=== PATIENT | male | born 1990 | race Hispanic/Latino ===

== ENCOUNTER 2017-02-05 10:35 | Inpatient (IN) | payer OTHER ==
[2017-02-05 10:38] VITALS: BMI 25.8
[2017-02-05 11:28] LABS: BASO # 0.1 K/uL (0.0-0.2); BASO % 0.9 % (0.0-2.0); EOS % 0.8 % (0.0-4.0); HEMATOCRIT 50.4 % (35.0-51.0); LYMPH # 2.2 K/uL (1.0-4.3); LYMPH % 34.7 % (20.0-40.0); MEAN CELL VOLUME 87.1 fl (80.0-94.0); MEAN CORPUSCULAR HEMOGLOBIN 30.6 pg (27.0-31.0); MEAN CORPUSCULAR HGB CONC 35.2 g/dL (33.0-37.0); MEAN PLATELET VOLUME 9.1 fl (7.2-11.7); MONO # 0.5 K/uL (0.0-0.8); MONO % 8.2 % (0.0-10.0); NEUT # 3.6 K/uL (1.8-7.0); NEUT % 55.4 % (50.0-75.0); NRBC % 1.9 % (0.0-0.0); WHITE BLOOD COUNT 6.4 K/uL (4.8-10.8)
--- NOTE | 2017-02-05 11:28 | RAD ---
HISTORY: chest pain/ r/o infiltrate COMPARISON: No prior. TECHNIQUE: Chest PA and lateral FINDINGS: LUNGS: The lungs are clear. PLEURA: There is a moderate right hydro pneumothorax. No evidence of significant mediastinal shift. No left pneumothorax or pleural effusion. CARDIOVASCULAR: Normal. OSSEOUS STRUCTURES: No significant abnormalities. VISUALIZED UPPER ABDOMEN: Normal. OTHER FINDINGS: None. IMPRESSION: Moderate right hydro pneumothorax. Critical findings were discussed with CHIN Conway on 02/05/2017 at 11:25 a.m.
[2017-02-05 12:26] LABS: ALB/GLOB RATIO 1.4 (1.0-2.1); ALKALINE PHOSPHATASE 55 U/L (38-126); ALT/SGPT 38 U/L (21-72); AST/SGOT 32 U/L (17-59); BILIRUBIN,TOTAL 1.2 mg/dl (0.2-1.3); BLOOD UREA NITROGEN 14 mg/dl (9-20); CALCIUM 9.9 mg/dL (8.4-10.2); CARBON DIOXIDE 24 mmol/L (22-30); CHLORIDE 104 mmol/L (98-107); GFR AFRICAN-AMERICAN > 60; GLUCOSE,RANDOM 80 mg/dL (75-110); POTASSIUM 4.2 MMOL/L (3.6-5.0); SODIUM 140 mmol/l (132-148); TOTAL PROTEIN 7.8 G/DL (6.3-8.2)
--- NOTE | 2017-02-05 12:41 | CT ---
PROCEDURE: CT Chest without contrast HISTORY: Pneumothorax possible hydropneumothorax COMPARISON: None. TECHNIQUE: Contiguous axial images were obtained through the chest without intravenous contrast enhancement. Sagittal and coronal reconstructions were performed. Radiation dose (DLP): 482.46 mGy-cm. This CT exam was performed using one or more of the following dose reduction techniques: Automated exposure control, adjustment of the mA and/or kV according to patient size, and/or use of iterative reconstruction technique. FINDINGS: LUNGS: There is confluent airspace disease in the posterior basal segment of the right lower lobe. There is also subsegmental atelectasis in the right lower lobe. There is no mass or pulmonary nodule. There is mild left apical pleural parenchymal scarring. There is no evidence of subpleural blebs. There are no endobronchial lesions. MEDIASTINUM: The aorta is normal in caliber. The heart is normal in size. No pericardial effusion. No pathologic lymphadenopathy. PLEURA: There is a moderate right hydro pneumothorax. No evidence of shift of mediastinal to the left. No left pleural effusion or pneumothorax. BONES: No fracture. No destructive lesion. UPPER ABDOMEN: Grossly unremarkable. OTHER FINDINGS: None. IMPRESSION: 1. Moderate right hydropneumothorax, the etiology of which remains uncertain. No evidence of mediastinal shift. No evidence of subpleural blebs. 2. Confluent airspace disease in the posterior basal segment of the right lower lobe could represent atelectasis however superimposed pneumonia cannot be excluded. Follow-up after medical management is recommended to ensure complete resolution. Critical findings were discussed with Dr. Michele Jeffrey on 02/05/2017.
--- NOTE | 2017-02-05 12:48 | ED PDOC ---
HPI: Chest Pain Time Seen by Provider: 02/05/17 10:55 Chief Complaint (Nursing): Chest Pain Chief Complaint (Provider): chest pain History Per: Patient History/Exam Limitations: no limitations Onset/Duration Of Symptoms: Days (x 2-3) Additional Complaint(s): Vlad Levy is a 26 year old male, with no previous medical history, who was sent to the ED by urgent care after a chest x-ray revealed a pneumothorax of the right lung. Patient reports experiencing right sided chest discomfort for the past 2-3 days after carrying a heavy bag. He reports pain worsened today while ambulating. He denies any current shortness of breath. PMD: none provided Past Medical History Reviewed: Historical Data, Nursing Documentation, Vital Signs Vital Signs: Last Vital Signs Temp 97.6 F 02/05/17 16:15 Pulse 78 02/05/17 16:15 Resp 19 02/05/17 16:15 BP 128/78 02/05/17 15:45 Pulse Ox 98 02/05/17 15:45 - Medical History PMH: No Chronic Diseases - Surgical History Other surgeries: nasal surgery - Family History Family History: States: Unknown Family Hx - Social History Current smoker - smoking cessation education provided: No Alcohol: Social Drugs: Denies - Home Medications Home Medications: Ambulatory Orders Medication Instructions Recorded No Known Home Med 02/05/17 - Allergies Allergies/Adverse Reactions: Allergies Allergy/AdvReac Type Severity Reaction Status Date / Time Penicillins Allergy RASH Verified 02/05/17 10:51 Review of Systems ROS Statement: Except As Marked, All Systems Reviewed And Found Negative Cardiovascular: Positive for: Chest Pain Respiratory: Negative for: Shortness of Breath Physical Exam - Reviewed Nursing Documentation Reviewed: Yes Vital Signs Reviewed: Yes - Physical Exam Appears: Positive for: Well, Non-toxic, No Acute Distress Head Exam: Positive for: ATRAUMATIC, NORMAL INSPECTION, NORMOCEPHALIC Skin: Positive for: Normal Color, Warm, Dry Eye Exam: Positive for: EOMI, Normal appearance, PERRL ENT: Positive for: Normal ENT Inspection Neck: Positive for: Normal, Painless ROM, Supple Cardiovascular/Chest: Positive for: Regular Rate, Rhythm Respiratory: Positive for: Decreased Breath Sounds (at the right lung ). Negative for: Other (subcutaneous emphysema ) Gastrointestinal/Abdominal: Positive for: Normal Exam, Bowel Sounds, Soft Back: Positive for: Normal Inspection Extremity: Positive for: Normal ROM Neurologic/Psych: Positive for: Alert, Oriented - Laboratory Results Result Diagrams: 02/05/17 11:23 02/05/17 11:23 - ECG Interpretation Of ECG: early re-polarization Rate: 62 (bpm) O2 Sat by Pulse Oximetry: 99 (RA) Pulse Ox Interpretation: Normal - Critical Care Total Time (In Min): 35 Medical Decision Making Medical Decision Making: Initial Impression: Pneumothorax Initial Plan: * CT chest w/o contrast * EKG * labs * Troponin I * NPO diet * PTT * PT * CXR * reevaluation 12:40 Chest x-ray showers a moderate right pneumothorax with fluid inferiorly prompting CT chest. Consulted with thoracic surgeon, Dr. De Anda who will be placing a chest tube and admitting to Telemetry. Procedure note- Procedural consent, see note below. Dr De Anda and surgical team did entire thoracostomy procedure. I provided procedural sedation only. Consent obtained for deep sedation after risks benefits and alternatives explained. NPO >8hrs per patient ETCO2 used and monitored throughout. Propofol used for sedation, tolerated well, premedicated w dilaudid 1mg for pain. MD in room for 35minutes Scribe Attestation: Documented by Dione Gaytan, acting as a scribe for Michele Jeffrey D.O. Provider Scribe Attestation: All medical record entries made by the Scribe were at my direction and personally dictated by me. I have reviewed the chart and agree that the record accurately reflects my personal performance of the history, physical exam, medical decision making, and the department course for this patient. I have also personally directed, reviewed, and agree with the discharge instructions and disposition. Disposition - Clinical Impression Clinical Impression: Hydropneumothorax - Patient ED Disposition Is Patient to be Admitted: Yes Counseled Patient/Family Regarding: Studies Performed, Diagnosis, Need For Followup - Disposition Disposition Time: 12:45 Condition: FAIR - Pt Status Changed To: Hospital Disposition Of: Inpatient - Admit Certification Admit to Inpatient:: After my assessment, the patient will require hospitalization for at least two midnights. This is because of the severity of symptoms shown, intensity of services needed, and/or the medical risk in this patient being treated as an outpatient. - POA Present On Arrival: None Procedure: Blank - Time Time Performed: 13:40 ( ) - Time Out Time Out: Side verified, Site verified, Patient ID confirmed, Sterile procedures obs. - Procedure Procedure:: Conscious Sedation - Consent obtained: Consent obtained: Written - Performed by: Performed by:: Attending physician - Anesthetic Technique Anesthetic Technique: Intravenous pain meds - Procedural Sedation Procedural Sedation: Propofol - Systemic Analgesia Systemic Analgesia:: Dilaudid - Result Result: Successful - Patient Tolerated Procedure Patient Tolerated Procedure:: Well
[2017-02-05] MEDS ORDERED: Propofol 10 mg/ml Inj (20 ML) IV ONE (13:32)
[2017-02-05] MEDS ORDERED: Propofol 10 mg/ml 1,000 MG/100 ML VIAL ONE (13:40)
[2017-02-05] MEDS ORDERED: Lidocaine 1% Inj (20ml) ONE (14:18)
[2017-02-05] MEDS ORDERED: Oxycodone/Acetaminophen 5/325 mg Tab PO PRN (15:12)
--- NOTE | 2017-02-05 15:15 | RAD ---
HISTORY: Follow-up pneumothorax. COMPARISON: Comparison made with prior study dated 02/05/2017 FINDINGS: LUNGS: Interval placement right-sided chest tube with decrease right pneumothorax however there may be a very tiny residual righ apical pneumothorax. Suspect minimal right basilar atelectasis. PLEURA: As above. CARDIOVASCULAR: Normal. OSSEOUS STRUCTURES: No significant abnormalities. VISUALIZED UPPER ABDOMEN: Normal. OTHER FINDINGS: None. IMPRESSION: Interval placement right-sided chest tube with what appears represent tiny residual right apical pneumothorax
--- NOTE | 2017-02-05 15:53 | CP.PCM.HP ---
History of Present Illness - History of Present Illness History of Present Illness: H & P for Dr. De Anda Vlad Levy is a 26 year old male, with no previous medical history, who was sent to the ED by urgent care after a chest x-ray revealed a pneumothorax of the right lung. Patient reports experiencing right sided chest discomfort for the past 2-3 days after carrying a heavy bag. He reports pain worsened today while ambulating. Denies shortness of breath/F/C/N/V/D/trauma. CXR and CT revealed R side hydro pneumothorax. CT was placed in the ED. Post chest tube CXR shows resolution of R pneumothorax. Present on Admission - Present on Admission Any Indicators Present on Admission: No Review of Systems - Review of Systems Review of Systems: See HPI Past Patient History - Past Social History Smoking Status: Never Smoked - CARDIAC Hx Cardiac Disorders: No - PULMONARY Hx Respiratory Disorders: No - NEUROLOGICAL Hx Neurological Disorder: No - HEENT Hx HEENT Problems: No - RENAL Hx Chronic Kidney Disease: No - ENDOCRINE/METABOLIC Hx Endocrine Disorders: No - HEMATOLOGICAL/ONCOLOGICAL Hx Blood Disorders: No - INTEGUMENTARY Hx Dermatological Problems: No - MUSCULOSKELETAL/RHEUMATOLOGICAL Hx Musculoskeletal Disorders: No - GENITOURINARY/GYNECOLOGICAL Hx Genitourinary Disorders: No - PSYCHIATRIC Hx Psychophysiologic Disorder: No - SURGICAL HISTORY Hx Surgeries: No Meds Allergies/Adverse Reactions: Allergies Allergy/AdvReac Type Severity Reaction Status Date / Time Penicillins Allergy RASH Verified 02/05/17 10:51 Physical Exam - Constitutional Appears: No Acute Distress - Head Exam Head Exam: ATRAUMATIC, NORMAL INSPECTION, NORMOCEPHALIC - Eye Exam Eye Exam: EOMI, Normal appearance, PERRL Pupil Exam: NORMAL ACCOMODATION, PERRL - ENT Exam ENT Exam: Mucous Membranes Moist, Normal Exam - Neck Exam Neck exam: Positive for: Normal Inspection - Respiratory Exam Respiratory Exam: Clear to Auscultation Bilateral, NORMAL BREATHING PATTERN Additional comments: R chest tube in place - Cardiovascular Exam Cardiovascular Exam: REGULAR RHYTHM - GI/Abdominal Exam GI & Abdominal Exam: Normal Bowel Sounds, Soft. absent: Distended, Tenderness - Extremities Exam Extremities exam: Positive for: normal inspection - Back Exam Back exam: NORMAL INSPECTION - Neurological Exam Neurological exam: Alert, CN II-XII Intact, Normal Gait, Oriented x3, Reflexes Normal - Psychiatric Exam Psychiatric exam: Normal Affect, Normal Mood - Skin Skin Exam: Dry, Intact, Normal Color, Warm Results - Vital Signs Recent Vital Signs: Last Vital Signs Temp 97.5 F L 02/05/17 14:59 Pulse 78 02/05/17 15:45 Resp 19 02/05/17 15:45 BP 128/78 02/05/17 15:45 Pulse Ox 98 02/05/17 15:45 - Labs Result Diagrams: 02/05/17 11:23 02/05/17 11:23 Assessment & Plan - Assessment and Plan (Free Text) Assessment: R spontaneous pneumothorax s/p chest tube insertion POD 0 -Daily CXR -Pain control -Ambulate, Incentive spirometer - CT on low cont suction DW Dr. De Anda
--- NOTE | 2017-02-05 15:59 | PCM.PROC ---
Procedures Attestation:: I certify that I have explained the specified Operation(s) or Procedure(s), risks, benefits and reasonable alternatives to the Patient and/or other person responsible. The opportunity was given to ask questions and all questions answered - Chest Tube Chest Tube Location: Anterior Chest Right Size of Tube (cm): 28 Chest Tube Procedure: Chlorhexidine Tube Sutured to Skin: Yes Sterile Dressing Applied: Yes Anesthesia: Lidocaine 1% Volume Anesthetic (mls): 20 Incision Made With: #10 blade Post Procedure: sutured to skin, sterile dressing applied Tube Drainage: other Amount of Initial Drainage: 5 (SS) Post Procedure CXR?: Yes Patient Tolerated Procedure: Yes
--- NOTE | 2017-02-05 16:21 | CP.PCM.CON ---
History of Present Illness - History of Present Illness History of Present Illness: Reason for consutaton: Spontaneous Right pneumothorax. Requested by Dr. Jeffrey. Pt s/e. 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 He came from Urgent care center where CXR showed 40% pneumothorax. Tube thoracostomy in the ER under IV sedation and local. 27f chest tube inserted via 5ics in ant axillary line. He tolerated procedure well, and post- procedure cxr-No or ? apical pneumo. No air leak. Min. serosanguinous effusion drained. Admit to telemetry unit, daily cxr, and pain control. ct of chest Wednesday to evaluate etiology of pneumo. Past Patient History - Past Social History Smoking Status: Never Smoked - CARDIAC Hx Cardiac Disorders: No - PULMONARY Hx Respiratory Disorders: No - NEUROLOGICAL Hx Neurological Disorder: No - HEENT Hx HEENT Problems: No - RENAL Hx Chronic Kidney Disease: No - ENDOCRINE/METABOLIC Hx Endocrine Disorders: No - HEMATOLOGICAL/ONCOLOGICAL Hx Blood Disorders: No - INTEGUMENTARY Hx Dermatological Problems: No - MUSCULOSKELETAL/RHEUMATOLOGICAL Hx Musculoskeletal Disorders: No - GENITOURINARY/GYNECOLOGICAL Hx Genitourinary Disorders: No - PSYCHIATRIC Hx Psychophysiologic Disorder: No - SURGICAL HISTORY Hx Surgeries: No Meds Allergies/Adverse Reactions: Allergies Allergy/AdvReac Type Severity Reaction Status Date / Time Penicillins Allergy RASH Verified 02/05/17 10:51 - Medications Medications: Current Medications Acetaminophen (Tylenol 325mg Tab) 650 mg PO Q4 PRN PRN Reason: Fever >100.4 F Oxycodone/Acetaminophen (Percocet 5/325 Mg Tab) 2 tab PO Q4 PRN PRN Reason: Pain, severe (8-10) Stop: 02/08/17 15:13 Results - Vital Signs Recent Vital Signs: Last Vital Signs Temp 97.6 F 02/05/17 16:15 Pulse 78 02/05/17 16:15 Resp 19 02/05/17 16:15 BP 128/78 02/05/17 15:45 Pulse Ox 98 02/05/17 15:45 - Labs Result Diagrams: 02/05/17 11:23 02/05/17 11:23
--- NOTE | 2017-02-06 07:51 | CP.PCM.PN ---
Subjective - Date & Time of Evaluation Date of Evaluation: 02/06/17 Time of Evaluation: 06:15 - Subjective Subjective: CT surgery progress note for Dr. Emmanuel Farrar, PGY-1 Pt S & E at bedside. Pt reports one episode of nausea with bilious emesis last night at ~11pm, improved w/anti-emetic. Pt reports eating dinner at 3am. Pain with inspiration and at the chest tube insertion site. Denies current N/V/F/C, SOB, CP, ab pain. Objective - Vital Signs/Intake and Output Vital Signs (last 24 hours): Temp Pulse Resp BP Pulse Ox 98.4 F 76 18 122/67 97 02/06/17 05:00 02/06/17 05:00 02/06/17 05:00 02/06/17 05:00 02/06/17 05:00 Intake and Output: 02/06/17 02/06/17 06:59 18:59 Intake Total 600 Output Total 1265 Balance -665 - Medications Medications: Current Medications Acetaminophen (Tylenol 325mg Tab) 650 mg PO Q4 PRN PRN Reason: Fever >100.4 F Heparin Sodium (Porcine) (Heparin) 5,000 units SC Q12 YUSRA PRN Reason: Protocol Ondansetron HCl (Zofran Odt) 4 mg PO Q8H PRN PRN Reason: Nausea/Vomiting Last Admin: 02/05/17 21:49 Dose: 4 mg Oxycodone/Acetaminophen (Percocet 5/325 Mg Tab) 2 tab PO Q4 PRN PRN Reason: Pain, severe (8-10) Stop: 02/08/17 15:13 - Labs Labs: PT 12.2 Seconds (9.8-13.1) 02/05/17 11:23 INR 1.1 (0.9-1.2) 02/05/17 11:23 APTT 31.0 Seconds (25.6-37.1) 02/05/17 11:23 - Constitutional Appears: Non-toxic, No Acute Distress - Head Exam Head Exam: ATRAUMATIC, NORMAL INSPECTION, NORMOCEPHALIC - Eye Exam Eye Exam: EOMI, Normal appearance - ENT Exam ENT Exam: Mucous Membranes Moist, Normal Exam - Neck Exam Neck Exam: Full ROM, Normal Inspection - Respiratory Exam Respiratory Exam: Chest Wall Tenderness (at right sided chest tube insertion site), Clear to Ausculation Bilateral. absent: Accessory Muscle Use, Rales, Rhonchi, Wheezes, Respiratory Distress, NORMAL BREATHING PATTERN (shallow breathing) - Cardiovascular Exam Cardiovascular Exam: REGULAR RHYTHM, +S1, +S2 - Extremities Exam Extremities Exam: Normal Inspection - Neurological Exam Neurological Exam: Alert, Awake, CN II-XII Intact, Oriented x3 - Psychiatric Exam Psychiatric exam: Normal Affect, Normal Mood - Skin Skin Exam: Dry, Normal Color, Warm Assessment and Plan - Assessment and Plan (Free Text) Assessment: 26M w/R pneumothorax s/p chest tube placment, POD#1 Plan: FU AM CXR OOBTC encourage IS use Started Heparin Cont pain mgmt/zofran Leave chest tube on suction Further recs as per attending Will REED attending Leni, PGY-1
--- NOTE | 2017-02-06 10:13 | RAD ---
HISTORY: R chest tube for pneumothorax COMPARISON: Chest x-ray performed 02/05/17 TECHNIQUE: Chest, one view. FINDINGS: LUNGS: No focal consolidation. Please note that chest x-ray has limited sensitivity for the detection of pulmonary masses. PLEURA: No significant pleural effusion identified. Right-sided chest tube. Tiny right-sided pneumothorax. CARDIOVASCULAR: The cardiomediastinal silhouette appears within normal limits of size. OSSEOUS STRUCTURES: No acute osseous abnormality identified. VISUALIZED UPPER ABDOMEN: Unremarkable. OTHER FINDINGS: Subcutaneous emphysema, right lateral chest wall. IMPRESSION: Right-sided chest tube. Tiny residual right-sided pneumothorax. Small subcutaneous emphysema, right lateral chest wall.
--- NOTE | 2017-02-06 13:50 | CARD ---
APPROVED REPORT EKG Measurement Heart [id number] <Conclusion> Sinus rhythm with marked sinus arrhythmia ST elevation, consider early repolarization, pericarditis, or injury Abnormal ECG
--- NOTE | 2017-02-07 10:51 | CP.PCM.PN ---
Subjective - Date & Time of Evaluation Date of Evaluation: 02/07/17 Time of Evaluation: 10:48 - Subjective Subjective: Surgery: Dr. De Anda Pt seen and examined. Resting comfortably in bed. No SOB. No Cough. Has complaints of mild back pain. Objective - Vital Signs/Intake and Output Vital Signs (last 24 hours): Temp Pulse Resp BP Pulse Ox 98.5 F 64 18 152/77 H 97 02/07/17 08:00 02/07/17 08:00 02/07/17 08:00 02/07/17 08:00 02/07/17 08:00 Intake and Output: 02/07/17 02/07/17 06:59 18:59 Output Total 415 Balance -415 - Medications Medications: Current Medications Acetaminophen (Tylenol 325mg Tab) 650 mg PO Q4 PRN PRN Reason: Fever >100.4 F Acetaminophen (Tylenol 325mg Tab) 650 mg PO Q4 PRN PRN Reason: Pain, moderate (4-7) Last Admin: 02/07/17 06:02 Dose: 650 mg Heparin Sodium (Porcine) (Heparin) 5,000 units SC Q12 YUSRA PRN Reason: Protocol Last Admin: 02/07/17 08:56 Dose: 5,000 units Ondansetron HCl (Zofran Odt) 4 mg PO Q8H PRN PRN Reason: Nausea/Vomiting Last Admin: 02/05/17 21:49 Dose: 4 mg Oxycodone/Acetaminophen (Percocet 5/325 Mg Tab) 2 tab PO Q4 PRN PRN Reason: Pain, severe (8-10) Stop: 02/08/17 15:13 - Labs Labs: PT 12.2 Seconds (9.8-13.1) 02/05/17 11:23 INR 1.1 (0.9-1.2) 02/05/17 11:23 APTT 31.0 Seconds (25.6-37.1) 02/05/17 11:23 - Constitutional Appears: Non-toxic, No Acute Distress - Head Exam Head Exam: ATRAUMATIC, NORMOCEPHALIC - Eye Exam Eye Exam: EOMI - ENT Exam ENT Exam: Mucous Membranes Moist - Respiratory Exam Respiratory Exam: NORMAL BREATHING PATTERN. absent: Accessory Muscle Use, Respiratory Distress Additional comments: R side CT in place, dressing C/D/I - GI/Abdominal Exam GI & Abdominal Exam: Soft. absent: Tenderness - Neurological Exam Neurological Exam: Alert, Awake, Oriented x3 Assessment and Plan - Assessment and Plan (Free Text) Assessment: 26M w. R PTX s/p CT placement, POD#2 -CT: 30cc/24hr serosang, tidling, no airleaks -CXR stable -Keep CT to suction -repeat CT 02/08 -motrin for pain -will d/w attending Zemaitis PGY3
--- NOTE | 2017-02-07 11:57 | RAD ---
HISTORY: R chest tube for pneumothorax COMPARISON: Chest x-ray performed 02/06/17. TECHNIQUE: Chest, one view. FINDINGS: Right-sided chest tube. LUNGS: No focal consolidation. Please note that chest x-ray has limited sensitivity for the detection of pulmonary masses. PLEURA: No significant pleural effusion identified. Tiny residual pneumothorax . CARDIOVASCULAR: Heart size appears within normal limits. OSSEOUS STRUCTURES: No acute osseous abnormality identified. VISUALIZED UPPER ABDOMEN: Unremarkable. OTHER FINDINGS: Small subcutaneous emphysema, right lateral chest wall. IMPRESSION: Right-sided chest tube. Tiny residual pneumothorax. Small subcutaneous emphysema, right lateral chest wall.
--- NOTE | 2017-02-08 08:13 | CP.PCM.PN ---
Subjective - Date & Time of Evaluation Date of Evaluation: 02/08/17 Time of Evaluation: 08:11 - Subjective Subjective: CT Surgery for Dr. De Anda Pt s&e. ROMULO. Denies F/C/N/V/D/CP/SOB. Tolerating diet. amb. +void Objective - Vital Signs/Intake and Output Vital Signs (last 24 hours): Temp Pulse Resp BP Pulse Ox 97.6 F 62 18 136/79 98 02/08/17 05:27 02/08/17 05:27 02/08/17 05:27 02/08/17 05:27 02/08/17 05:27 Intake and Output: 02/08/17 02/08/17 06:59 18:59 Output Total 410 Balance -410 - Medications Medications: Current Medications Acetaminophen (Tylenol 325mg Tab) 650 mg PO Q4 PRN PRN Reason: Fever >100.4 F Acetaminophen (Tylenol 325mg Tab) 650 mg PO Q4 PRN PRN Reason: Pain, moderate (4-7) Last Admin: 02/07/17 06:02 Dose: 650 mg Heparin Sodium (Porcine) (Heparin) 5,000 units SC Q12 YUSRA PRN Reason: Protocol Last Admin: 02/07/17 20:40 Dose: 5,000 units Ibuprofen (Motrin Tab) 600 mg PO Q6 PRN PRN Reason: Pain, moderate (4-7) Last Admin: 02/07/17 23:04 Dose: 600 mg Ondansetron HCl (Zofran Odt) 4 mg PO Q8H PRN PRN Reason: Nausea/Vomiting Last Admin: 02/05/17 21:49 Dose: 4 mg Oxycodone/Acetaminophen (Percocet 5/325 Mg Tab) 2 tab PO Q4 PRN PRN Reason: Pain, severe (8-10) Stop: 02/08/17 15:13 - Labs Labs: PT 12.2 Seconds (9.8-13.1) 02/05/17 11:23 INR 1.1 (0.9-1.2) 02/05/17 11:23 APTT 31.0 Seconds (25.6-37.1) 02/05/17 11:23 - Constitutional Appears: No Acute Distress - Head Exam Head Exam: ATRAUMATIC, NORMAL INSPECTION, NORMOCEPHALIC - Eye Exam Eye Exam: EOMI, Normal appearance, PERRL Pupil Exam: NORMAL ACCOMODATION, PERRL - ENT Exam ENT Exam: Mucous Membranes Moist, Normal Exam - Neck Exam Neck Exam: Full ROM, Normal Inspection. absent: Lymphadenopathy - Respiratory Exam Respiratory Exam: Clear to Ausculation Bilateral, NORMAL BREATHING PATTERN Additional comments: R chest tube in place: No leak . 10 cc ss . - Cardiovascular Exam Cardiovascular Exam: REGULAR RHYTHM, +S1, +S2. absent: Murmur - GI/Abdominal Exam GI & Abdominal Exam: Soft, Normal Bowel Sounds. absent: Distended, Firm, Guarding, Rigid, Tenderness - Extremities Exam Extremities Exam: Full ROM, Normal Capillary Refill, Normal Inspection. absent : Joint Swelling, Pedal Edema - Back Exam Back Exam: NORMAL INSPECTION - Neurological Exam Neurological Exam: Alert, Awake, CN II-XII Intact, Normal Gait, Oriented x3 - Psychiatric Exam Psychiatric exam: Normal Affect, Normal Mood - Skin Skin Exam: Dry, Intact, Normal Color, Warm Assessment and Plan - Assessment and Plan (Free Text) Assessment: 26M w. R PTX s/p CT placement, POD#3 -F/U CT chest today -CT: 10cc/24hr serosang, tidling, no airleaks -Keep CT to suction -motrin for pain -will d/w attending
--- NOTE | 2017-02-08 11:02 | RAD ---
PROCEDURE: CHEST RADIOGRAPH, 1 VIEW HISTORY: R chest tube for pneumothorax COMPARISON: 02/07/2017 FINDINGS: LUNGS: Clear. PLEURA: No pleural effusion or pneumothorax. Right lateral chest tube extends near apex, unchanged. CARDIOVASCULAR: Normal. OSSEOUS STRUCTURES: No significant abnormalities. VISUALIZED UPPER ABDOMEN: Normal. OTHER FINDINGS: None. IMPRESSION: Right chest tube unchanged. No pneumothorax.
--- NOTE | 2017-02-08 12:45 | CT ---
PROCEDURE: CT Chest without contrast HISTORY: comparison, pneumothorax s/p chest tube COMPARISON: Prior chest CT dated 02/05/2017. TECHNIQUE: Contiguous axial images were obtained through the chest without intravenous contrast enhancement. Sagittal and coronal reconstructions were performed. Radiation dose (DLP): 539 mGy-cm. This CT exam was performed using one or more of the following dose reduction techniques: Automated exposure control, adjustment of the mA and/or kV according to patient size, and/or use of iterative reconstruction technique. FINDINGS: LUNGS: A right-sided chest is it is identified in situ at the right lateral right pleural space. Prior right pneumothorax has resolved. There is moderate bilateral basilar dependent atelectasis. Visualized airway clear. Trace biapical pulmonary fibrosis again evident. MEDIASTINUM: Unremarkable thoracic aorta. No aneurysm. Normal sized heart. Main pulmonary artery unremarkable. No vascular congestion. No lymphadenopathy. PLEURA: No pleural fluid. No pneumothorax. BONES: No fracture. No destructive lesion. UPPER ABDOMEN: Grossly unremarkable. OTHER FINDINGS: None. IMPRESSION: Resolution of prior right pneumothorax with right-sided chest tube in situ at the lateral right pleural space. Bibasilar dependent atelectasis is encountered.
--- NOTE | 2017-02-09 07:46 | CP.PCM.PN ---
Subjective - Date & Time of Evaluation Date of Evaluation: 02/09/17 Time of Evaluation: 07:44 - Subjective Subjective: CT Surgery for Dr. De Anda Pt s&e. ROMULO. Denies F/C/N/V/D/CP/SOB. +amb + void. CT has been on waterseal since yesterday AM. No pain. Tolerating diet. Objective - Vital Signs/Intake and Output Vital Signs (last 24 hours): Temp Pulse Resp BP Pulse Ox 97.6 F 70 18 139/66 99 02/09/17 05:38 02/09/17 05:38 02/09/17 05:38 02/09/17 05:38 02/09/17 05:38 Intake and Output: 02/09/17 02/09/17 06:59 18:59 Output Total 5 Balance -5 - Medications Medications: Current Medications Acetaminophen (Tylenol 325mg Tab) 650 mg PO Q4 PRN PRN Reason: Fever >100.4 F Acetaminophen (Tylenol 325mg Tab) 650 mg PO Q4 PRN PRN Reason: Pain, moderate (4-7) Last Admin: 02/07/17 06:02 Dose: 650 mg Heparin Sodium (Porcine) (Heparin) 5,000 units SC Q12 YUSRA PRN Reason: Protocol Last Admin: 02/08/17 21:43 Dose: 5,000 units Ibuprofen (Motrin Tab) 600 mg PO Q6 PRN PRN Reason: Pain, moderate (4-7) Last Admin: 02/08/17 21:48 Dose: 600 mg Ondansetron HCl (Zofran Odt) 4 mg PO Q8H PRN PRN Reason: Nausea/Vomiting Last Admin: 02/05/17 21:49 Dose: 4 mg - Labs Labs: PT 12.2 Seconds (9.8-13.1) 02/05/17 11:23 INR 1.1 (0.9-1.2) 02/05/17 11:23 APTT 31.0 Seconds (25.6-37.1) 02/05/17 11:23 - Constitutional Appears: In Acute Distress - Head Exam Head Exam: ATRAUMATIC, NORMAL INSPECTION, NORMOCEPHALIC - Eye Exam Eye Exam: EOMI, Normal appearance, PERRL Pupil Exam: NORMAL ACCOMODATION, PERRL - ENT Exam ENT Exam: Mucous Membranes Moist, Normal Exam - Neck Exam Neck Exam: Full ROM, Normal Inspection. absent: Lymphadenopathy - Respiratory Exam Respiratory Exam: Clear to Ausculation Bilateral, NORMAL BREATHING PATTERN Additional comments: CT no leak. - Cardiovascular Exam Cardiovascular Exam: REGULAR RHYTHM, +S1, +S2. absent: Murmur - GI/Abdominal Exam GI & Abdominal Exam: Soft, Normal Bowel Sounds. absent: Tenderness - Rectal Exam Rectal Exam: NORMAL INSPECTION - Extremities Exam Extremities Exam: Full ROM, Normal Capillary Refill, Normal Inspection. absent : Joint Swelling, Pedal Edema - Back Exam Back Exam: NORMAL INSPECTION - Neurological Exam Neurological Exam: Alert, Awake, CN II-XII Intact, Normal Gait, Oriented x3 - Psychiatric Exam Psychiatric exam: Normal Affect, Normal Mood - Skin Skin Exam: Dry, Intact, Normal Color, Warm Assessment and Plan - Assessment and Plan (Free Text) Assessment: 26M w. R PTX s/p CT placement, POD#4 -F/U AM CXR -Possible DC CXR -CT: no airleaks -Keep CT on waterseal -motrin for pain -will d/w attending
--- NOTE | 2017-02-09 12:12 | RAD ---
PROCEDURE: CHEST RADIOGRAPH, 1 VIEW HISTORY: R chest tube for pneumothorax COMPARISON: 02/08/2017 FINDINGS: LUNGS: Clear. PLEURA: Right apical chest tube unchanged. No pneumothorax. No pleural effusion. CARDIOVASCULAR: Normal. OSSEOUS STRUCTURES: No significant abnormalities. VISUALIZED UPPER ABDOMEN: Normal. OTHER FINDINGS: None. IMPRESSION: Right chest tube. No pneumothorax. Otherwise unremarkable.
--- NOTE | 2017-02-09 12:33 | RAD ---
HISTORY: post CT pull COMPARISON: 02/09/2017 at 9:24 a.m. FINDINGS: LUNGS: No pulmonary infiltrate. PLEURA: There is a moderate right pneumothorax. The right chest tube has been removed. There is no left pneumothorax. There is no pleural effusion. CARDIOVASCULAR: Normal. OSSEOUS STRUCTURES: No significant abnormalities. VISUALIZED UPPER ABDOMEN: Normal. OTHER FINDINGS: None. IMPRESSION: Status post removal of right chest tube. Moderate right pneumothorax noted. This finding was reviewed with Dr. De Anda at 12:30 p.m. on 02/09/2017.
--- NOTE | 2017-02-09 13:05 | CP.PCM.PN ---
Subjective - Date & Time of Evaluation Date of Evaluation: 02/09/17 Time of Evaluation: 12:57 - Subjective Subjective: Recurrent right pneumothorax after removal of chest tube-documented on cxr. Will reinsert the tube in OR under sedation and local+ talc pleurodesis using Fluroscopic guidance Risks, benefits, and alternatives discussed and surgical procedure discussed with the pt who accepted surgery without reservation. Objective - Vital Signs/Intake and Output Vital Signs (last 24 hours): Temp Pulse Resp BP Pulse Ox 97.7 F 82 20 137/80 97 02/09/17 12:33 02/09/17 12:33 02/09/17 12:33 02/09/17 12:33 02/09/17 12:33 Intake and Output: 02/09/17 02/09/17 06:59 18:59 Output Total 5 Balance -5 - Medications Medications: Current Medications Acetaminophen (Tylenol 325mg Tab) 650 mg PO Q4 PRN PRN Reason: Fever >100.4 F Acetaminophen (Tylenol 325mg Tab) 650 mg PO Q4 PRN PRN Reason: Pain, moderate (4-7) Last Admin: 02/07/17 06:02 Dose: 650 mg Heparin Sodium (Porcine) (Heparin) 5,000 units SC Q12 YUSRA PRN Reason: Protocol Last Admin: 02/09/17 09:50 Dose: 5,000 units Ibuprofen (Motrin Tab) 600 mg PO Q6 PRN PRN Reason: Pain, moderate (4-7) Last Admin: 02/08/17 21:48 Dose: 600 mg Ondansetron HCl (Zofran Odt) 4 mg PO Q8H PRN PRN Reason: Nausea/Vomiting Last Admin: 02/05/17 21:49 Dose: 4 mg - Labs Labs: PT 12.2 Seconds (9.8-13.1) 02/05/17 11:23 INR 1.1 (0.9-1.2) 02/05/17 11:23 APTT 31.0 Seconds (25.6-37.1) 02/05/17 11:23
[2017-02-09] MEDS ORDERED: Midazolam 2 MG/2 ML VIAL ONE ×2 (13:09→13:21)
[2017-02-09] MEDS ORDERED: Sodium Chloride 0.9% 500 ML IV ONE (13:16)
[2017-02-09] MEDS ORDERED: Lidocaine 1% Inj (20ml) IJ ONE (13:23)
[2017-02-09] MEDS ORDERED: Succinylcholine 200 mg/10 ml Inj IV ONE (13:24)
[2017-02-09] MEDS ORDERED: Bupivacaine 0.5% Inj(30mL) ONE (13:30)
[2017-02-09] MEDS ORDERED: Lidocaine 1% Inj (20ml) ONE ×2 (13:30→13:33)
[2017-02-09] MEDS ORDERED: Propofol 10 mg/ml Inj (20 ML) ONE (14:04)
[2017-02-09] MEDS ORDERED: Oxycodone/Acetaminophen 5/325 mg Tab PO PRN (14:33)
--- NOTE | 2017-02-09 14:34 | PCM.SURG1 ---
Surgeon's Initial Post Op Note - Surgeon's Notes Surgeon: Dr. De Anda Tree Tapping Laborer: Dr. Jarett Ross PGY2, Dr. German Shelby PGY1 Type of Anesthesia: IV Sedation, Local Pre-Operative Diagnosis: Right Pneumothorax Operative Findings: same Post-Operative Diagnosis: same Operation Performed: Insertion of Right sided chest tube with talc pleurodesis Specimen/Specimens Removed: Wound culture Estimated Blood Loss: EBL {In ML}: 10 Blood Products Given: N/A Drains Used: Chest Tubes (Right sided Apical Chest tube) Post-Op Condition: Good Date of Surgery/Procedure: 02/09/17 Time of Surgery/Procedure: 14:32
--- NOTE | 2017-02-09 14:48 | RAD ---
HISTORY: s/p CT insertion COMPARISON: 02/09/2017 at 11:17 a.m. FINDINGS: LUNGS: Status post re- insertion of right chest tube. Chest tube extends to right lung apex. No residual pneumothorax identified. There is new subcutaneous emphysema over the right lateral chest wall. This is only a small quantity. There is subsegmental atelectasis at the right base. There is mild elevation of the right hemidiaphragm. There is no dennys pulmonary infiltrate elsewhere. There is no pleural effusion. PLEURA: As above CARDIOVASCULAR: Normal. OSSEOUS STRUCTURES: No significant abnormalities. VISUALIZED UPPER ABDOMEN: Normal. OTHER FINDINGS: None. IMPRESSION: Right apical chest tube. No residual pneumothorax. Right basilar subsegmental atelectasis. Minimal right chest wall subcutaneous emphysema.
[2017-02-09 14:53] LABS: ABG ALLEN TEST YES; ARTERIAL BLOOD GAS HCO3 27.5 mmol/L (21-28); ARTERIAL BLOOD GAS O2 CAPACITY 23.2 mL/dL (16-24); ARTERIAL BLOOD GAS O2 CONTENT 22.4 ML/dL (15-23); ARTERIAL BLOOD GAS PH 7.39 (7.35-7.45); ARTERIAL BLOOD GAS PO2 69 mm/Hg (80-100); ARTERIAL BLOOD HGB O2 SAT 92.7 % (95.0-98.0); CARBOXYHEMOGLOBIN 2.1 % (0.5-1.5); HHB 3.4 % (0.0-5.0); METHEMOGLOBIN 1.8 % (0.0-3.0)
--- NOTE | 2017-02-09 16:28 | CP.CCUPN ---
CCU Subjective - Physician Review Events Since Last Encounter (Free Text): 02/09/17 16:16 The patient was Seen/interviewed and examined by me at the bedside during ICU round, Medical records reviewed and Management issues were discussed and formulated with the house staff. 26 Years old Male with No Chronic Diseases, who was sent to the ED by urgent care after a chest x-ray revealed right sided pneumothorax, Patient reports experiencing right sided chest discomfort for the past 2-3 days after carrying a heavy bag. Underwent 28 Fr Chest Tube placement in the Anterior Chest Right, done by thoracic surgery on . Today he had recurrent right pneumothorax after removal of chest tube, underwent Insertion of Right sided chest tube with talc pleurodesis in the OR. Admitted to the ICU for post-op management. Patient alert, awake, denies CP/SOB Started on PO diet, tolerating but poor PO intake Started on IV Dilaudid 0.5mg Q 4H PRN, and pain has been manageable. CCU Objective - Vital Signs / Intake & Output Vital Signs (Last 4 hours): Vital Signs Temp Pulse Resp BP Pulse Ox 02/09/17 15:20 98.0 F 72 20 139/76 96 02/09/17 15:05 77 20 138/74 96 02/09/17 14:50 68 18 134/77 100 02/09/17 14:35 87 18 147/71 94 L 02/09/17 14:18 98.3 F 84 18 147/94 H 93 L 02/09/17 12:33 97.7 F 82 20 137/80 97 Intake and Output (Last 8hrs): Intake & Output 02/09/17 02/09/17 02/09/17 06:59 14:59 22:59 Intake Total 350 Output Total 5 90 40 Balance -5 260 -40 Intake: IV 350 Output: Chest Tube Drainage 5 90 40 Right Anterior Chest 5 - Physical Exam Head: Positive for: Atraumatic, Normocephalic Pupils: Positive for: PERRL Extroacular Muscles: Positive for: EOMI Conjunctiva: Positive for: Normal. Negative for: Injected, Icteric Mouth: Positive for: Moist Mucous Membranes Pharnyx: Positive for: Normal Nose (Internal): Positive for: Normal Inspection Neck: Positive for: Normal Range of Motion, Trachea Midline. Negative for: Meningeal Signs, MIDLINE TENDERNESS, Paraspinal Tenderness, JVD, Lymphadenopathy , Bruit, Other Respiratory/Chest: Positive for: Clear to Auscultation, Good Air Exchange. Negative for: Respiratory Distress, Accessory Muscle Use Cardiovascular: Positive for: Regular Rate and Rhythm, Normal S1, S2, Peripheal Pulses Present. Negative for: Murmurs, Irregular Rhythm, Tachycardic, Bradycardic Abdomen: Positive for: Normal Bowel Sounds. Negative for: Tenderness, Distention, Peritoneal Signs Back: Positive for: Normal Inspection. Negative for: CVA Tenderness Upper Extremity: Positive for: Normal Inspection, Normal ROM, NORMAL PULSES, Capillary Refill < 2s. Negative for: Cyanosis, Edema, Tenderness Lower Extremity: Positive for: Normal Inspection, NORMAL PULSES, Capillary Refill < 2 s. Negative for: Edema, CALF TENDERNESS Neurological: Positive for: GCS=15, CN II-XII Intact, Speech Normal, Motor Func Grossly Intact, Normal Sensory Function Psychiatric: Positive for: Alert, Oriented x 3. Negative for: Normal Insight, Normal Concentration - Medications Active Medications: Active Medications Generic Name Dose Route Start Last Admin Trade Name Freq PRN Reason Stop Dose Admin Acetaminophen 650 mg 02/05/17 15:46 Tylenol 325mg Tab PO Q4 PRN Fever >100.4 F Acetaminophen 650 mg 02/06/17 08:05 02/09/17 15:52 Tylenol 325mg Tab PO 650 mg Q4 PRN Administration Pain, moderate (4-7) Heparin Sodium (Porcine) 5,000 units 02/06/17 09:00 02/09/17 09:50 Heparin SC 5,000 units Q12 YUSRA Administration Protocol Hydromorphone HCl 0.5 mg 02/09/17 14:32 Dilaudid IVP Q6 PRN Pain, severe (8-10) Ibuprofen 600 mg 02/07/17 10:52 02/08/17 21:48 Motrin Tab PO 600 mg Q6 PRN Administration Pain, moderate (4-7) Ketorolac Tromethamine 15 mg 02/09/17 14:31 Toradol IVP Q6 PRN Pain, moderate (4-7) Ondansetron HCl 4 mg 02/05/17 21:31 02/05/17 21:49 Zofran Odt PO 4 mg Q8H PRN Administration Nausea/Vomiting Oxycodone/Acetaminophen 2 tab 02/09/17 14:33 Percocet 5/325 Mg Tab PO 02/12/17 14:34 Q4 PRN Pain, Mild (1-3) - Patient Studies Lab Studies: Lab Studies 02/09/17 Range/Units 14:45 pCO2 49 H (35-45) mm/Hg pO2 69 L (80-100) mm/Hg HCO3 27.5 (21-28) mmol/L ABG pH 7.39 (7.35-7.45) ABG Total CO2 31.2 H (22-28) mmol/L ABG O2 Saturation 96.5 (95-98) % ABG O2 Content 22.4 (15-23) ML/dL ABG Base Excess 3.5 H (-2.0-3.0) mmol/L ABG Hemoglobin 17.2 (11.7-17.4) g/dL ABG Carboxyhemoglobin 2.1 H (0.5-1.5) % POC ABG HHb (Measured) 3.4 (0.0-5.0) % ABG Methemoglobin 1.8 (0.0-3.0) % ABG O2 Capacity 23.2 (16-24) mL/dL Ronny Test Yes A-a O2 Difference 19.0 mm/Hg Hgb O2 Saturation 92.7 L (95.0-98.0) % FiO2 21.0 % Laboratory Results - last 24 hr 02/09/17 14:45 pCO2 49 H pO2 69 L HCO3 27.5 ABG pH 7.39 ABG Total CO2 31.2 H ABG O2 Saturation 96.5 ABG O2 Content 22.4 ABG Base Excess 3.5 H ABG Hemoglobin 17.2 ABG Carboxyhemoglobin 2.1 H POC ABG HHb (Measured) 3.4 ABG Methemoglobin 1.8 ABG O2 Capacity 23.2 Ronny Test Yes A-a O2 Difference 19.0 Hgb O2 Saturation 92.7 L FiO2 21.0 Critical Care Progress Note - Nutrition Nutrition: Nutrition Category Date Time Status Liquid Diet [DIET] Diets 02/09/17 Dinner Active Assessment/Plan (1) Chest tube in place Current Visit: Yes Status: Acute (2) Hydropneumothorax Current Visit: Yes Status: Acute - Assessment and Plan (Free Text) Assessment: Admit to SICU for hemodynamic monitoring, Chest tube to suction, -20 cm H2o Monitor Respiratory status for Respiratory depression PRN Naloxone for RR<8 IV Hydration with 0.9% @ 100 ml/hr Perioperative Antibiotics with IV Vancomycin Pain control with Dilauded IV Q4H PRN NPO until fully awake and can pass the nurse bedside swallow evaluation. Clear liquid diet, Advance as tolerate Pulmonary and neurology consult BD nebs q 6h prn PRN Ondansetron OOB chair Incentive spirometry Aggressive pulmonary toilet GI/DVT PPX with SCDs, SQH GI PPX
[2017-02-10 05:34] LABS: HEMATOCRIT 45.9 % (35.0-51.0); MEAN CELL VOLUME 86.8 fl (80.0-94.0); MEAN CORPUSCULAR HEMOGLOBIN 30.4 pg (27.0-31.0); RED CELL DISTRIBUTION WIDTH 12.9 % (11.5-14.5); WHITE BLOOD COUNT 12.3 K/uL (4.8-10.8)
[2017-02-10 05:39] LABS: BLOOD UREA NITROGEN 11 mg/dl (9-20); CALCIUM 9.6 mg/dL (8.4-10.2); CARBON DIOXIDE 26 mmol/L (22-30); CHLORIDE 106 mmol/L (98-107); GFR AFRICAN-AMERICAN > 60; GLUCOSE,RANDOM 90 mg/dL (75-110); SODIUM 141 mmol/l (132-148)
--- NOTE | 2017-02-10 07:54 | CP.PCM.PN ---
Subjective - Date & Time of Evaluation Date of Evaluation: 02/10/17 Time of Evaluation: 07:51 - Subjective Subjective: Surgery: Dr. De Anda Pt seen and examined. Resting comfortably in bed. No acute events overnight. Mild discomfort at CT site. No SOB. Objective - Vital Signs/Intake and Output Vital Signs (last 24 hours): Temp Pulse Resp BP Pulse Ox 98.4 F 83 19 129/73 95 02/10/17 04:00 02/10/17 06:00 02/10/17 06:00 02/10/17 06:00 02/10/17 06:00 - Medications Medications: Current Medications Acetaminophen (Tylenol 325mg Tab) 650 mg PO Q4 PRN PRN Reason: Fever >100.4 F Acetaminophen (Tylenol 325mg Tab) 650 mg PO Q4 PRN PRN Reason: Pain, moderate (4-7) Last Admin: 02/09/17 22:37 Dose: 650 mg Heparin Sodium (Porcine) (Heparin) 5,000 units SC Q12 YUSRA PRN Reason: Protocol Last Admin: 02/09/17 20:40 Dose: 5,000 units Hydromorphone HCl (Dilaudid) 0.5 mg IVP Q6 PRN PRN Reason: Pain, severe (8-10) Vancomycin HCl 1 gm/ Sodium (Chloride) 250 mls @ 166.667 mls/hr IVPB Q12@0800, 2000 YUSRA Ibuprofen (Motrin Tab) 600 mg PO Q6 PRN PRN Reason: Pain, moderate (4-7) Last Admin: 02/10/17 06:54 Dose: 600 mg Ketorolac Tromethamine (Toradol) 15 mg IVP Q6 PRN PRN Reason: Pain, moderate (4-7) Ondansetron HCl (Zofran Odt) 4 mg PO Q8H PRN PRN Reason: Nausea/Vomiting Last Admin: 02/09/17 22:56 Dose: 4 mg Oxycodone/Acetaminophen (Percocet 5/325 Mg Tab) 2 tab PO Q4 PRN PRN Reason: Pain, Mild (1-3) Stop: 02/12/17 14:34 - Labs Labs: 02/10/17 04:30 02/10/17 04:30 PT 12.2 Seconds (9.8-13.1) 02/05/17 11:23 INR 1.1 (0.9-1.2) 02/05/17 11:23 APTT 31.0 Seconds (25.6-37.1) 02/05/17 11:23 - Constitutional Appears: Non-toxic, No Acute Distress - Head Exam Head Exam: ATRAUMATIC, NORMOCEPHALIC - Eye Exam Eye Exam: EOMI - ENT Exam ENT Exam: Mucous Membranes Moist - Neck Exam Neck Exam: Full ROM - Respiratory Exam Respiratory Exam: NORMAL BREATHING PATTERN. absent: Accessory Muscle Use, Respiratory Distress Additional comments: R side CT in place - Neurological Exam Neurological Exam: Alert, Awake, Oriented x3 Assessment and Plan - Assessment and Plan (Free Text) Assessment: 26M w. recurrent R PTX following CT removal, s/p new CT and talc pleurodesis, POD#1 -CT: 170cc/24 hr serosang, CT tidling, no air leak, continue to monitor -CXR stable -keep CT to suction -encourage IS and OOB -will d/w attending Magdaleno PGY3
--- NOTE | 2017-02-10 08:02 | RAD ---
PROCEDURE: CHEST RADIOGRAPH, 1 VIEW. Portable study 04:35. HISTORY: R pneumothorax s/p chest tube COMPARISON: Multiple serial examinations preceding the most recent study: February 09, 2017. 14:25. FINDINGS: LUNGS: Stable atelectatic changes right lower lobe. PLEURA: No significant pneumothorax identified. Chest tube in stable position. Adjacent subcutaneous emphysema. CARDIOVASCULAR: Normal. OSSEOUS STRUCTURES: No significant abnormalities. VISUALIZED UPPER ABDOMEN: Normal. OTHER FINDINGS: None. IMPRESSION: No significant interval change compared to the prior examination(s).
--- NOTE | 2017-02-10 08:13 | RAD ---
PROCEDURE: Intraoperative Fluoroscopy. HISTORY: CHEST TUBE PLACEMENT FINDINGS: Fluoroscopic assistance was provided for chest tube placement. Please time (continuous mode) utilized during the procedure: 28.5 seconds.
--- NOTE | 2017-02-10 12:07 | CP.PCM.PN ---
Subjective - Date & Time of Evaluation Date of Evaluation: 02/10/17 Time of Evaluation: 12:04 - Subjective Subjective: POD #1 Pt s/e with DR. Ross. No c/o. states occ back pain. No sob. Tolerating diet well. Afebrile vss wbc 12k. chest tube-No air leak.150cc/y serous. cxr-No pneumo. a/p: Satisfactory pos #1. Incentive spirometer. OOB. Lab and cxr in am. Continue antibiotic. Objective - Vital Signs/Intake and Output Vital Signs (last 24 hours): Temp Pulse Resp BP Pulse Ox 98.8 F 75 17 133/60 95 02/10/17 08:00 02/10/17 10:00 02/10/17 10:00 02/10/17 10:00 02/10/17 10:00 - Medications Medications: Current Medications Acetaminophen (Tylenol 325mg Tab) 650 mg PO Q4 PRN PRN Reason: Fever >100.4 F Acetaminophen (Tylenol 325mg Tab) 650 mg PO Q4 PRN PRN Reason: Pain, moderate (4-7) Last Admin: 02/09/17 22:37 Dose: 650 mg Heparin Sodium (Porcine) (Heparin) 5,000 units SC Q12 [facility] PRN Reason: Protocol Last Admin: 02/10/17 09:58 Dose: 5,000 units Hydromorphone HCl (Dilaudid) 0.5 mg IVP Q6 PRN PRN Reason: Pain, severe (8-10) Vancomycin HCl 1 gm/ Sodium (Chloride) 250 mls @ 166.667 mls/hr IVPB Q12@0800, 2000 [facility] Last Admin: 02/10/17 09:59 Dose: 166.667 mls/hr Ibuprofen (Motrin Tab) 600 mg PO Q6 PRN PRN Reason: Pain, moderate (4-7) Last Admin: 02/10/17 06:54 Dose: 600 mg Ketorolac Tromethamine (Toradol) 15 mg IVP Q6 PRN PRN Reason: Pain, moderate (4-7) Ondansetron HCl (Zofran Odt) 4 mg PO Q8H PRN PRN Reason: Nausea/Vomiting Last Admin: 02/09/17 22:56 Dose: 4 mg Oxycodone/Acetaminophen (Percocet 5/325 Mg Tab) 2 tab PO Q4 PRN PRN Reason: Pain, Mild (1-3) Stop: 02/12/17 14:34 - Labs Labs: 02/10/17 04:30 02/10/17 04:30 PT 12.2 Seconds (9.8-13.1) 02/05/17 11:23 INR 1.1 (0.9-1.2) 02/05/17 11:23 APTT 31.0 Seconds (25.6-37.1) 02/05/17 11:23
--- NOTE | 2017-02-10 16:46 | CT ---
PROCEDURE: CT HEAD WITHOUT CONTRAST. HISTORY: TIA COMPARISON: None available. TECHNIQUE: Axial computed tomography images were obtained through the head/brain without intravenous contrast. Radiation dose: Total exam DLP = 838 mGy-cm. This CT exam was performed using one or more of the following dose reduction techniques: Automated exposure control, adjustment of the mA and/or kV according to patient size, and/or use of iterative reconstruction technique. FINDINGS: HEMORRHAGE: No intracranial hemorrhage. BRAIN: No mass effect or edema. No atrophy or chronic microvascular ischemic changes. VENTRICLES: Unremarkable. No hydrocephalus. CALVARIUM: Unremarkable. PARANASAL SINUSES: The tiny left maxillary sinus polyp or cyst identified. . MASTOID AIR CELLS: Normal-appearing bilaterally. . OTHER FINDINGS: None. IMPRESSION: Normal CT of the Head. Incidental note is made of a tiny cyst or polyp left maxillary sinus.
--- NOTE | 2017-02-10 17:15 | CP.PCM.CON ---
History of Present Illness - History of Present Illness History of Present Illness: Mr. Levy is a 26-year-old man with no significant past medical history who developed pneumothorax and was treated with a chest tube, but had recurrence and required treatment with talc pleurodesis. According to report, he had some confusion and alteration in his mental status after the procedure. He is not back to baseline and has no residual symptoms. Neurology was consulted for possible TIA. CT scan of the head was normal. The patient has no other complaints today. Review of Systems - Review of Systems All systems: reviewed and no additional remarkable complaints except Past Patient History - Past Medical History & Family History Past Medical History?: No - Past Social History Smoking Status: Never Smoked - CARDIAC Hx Cardiac Disorders: No - PULMONARY Hx Respiratory Disorders: No - NEUROLOGICAL Hx Neurological Disorder: No - HEENT Hx HEENT Problems: No - RENAL Hx Chronic Kidney Disease: No - ENDOCRINE/METABOLIC Hx Endocrine Disorders: No - HEMATOLOGICAL/ONCOLOGICAL Hx Blood Disorders: No Hx AIDS: No Hx Human Immunodeficiency Virus (HIV): No - INTEGUMENTARY Hx Dermatological Problems: No - MUSCULOSKELETAL/RHEUMATOLOGICAL Hx Musculoskeletal Disorders: No Hx Falls: No - GENITOURINARY/GYNECOLOGICAL Hx Genitourinary Disorders: No - PSYCHIATRIC Hx Psychophysiologic Disorder: No Hx Substance Use: No - SURGICAL HISTORY Hx Surgeries: No - ANESTHESIA Hx Anesthesia: Yes Hx Anesthesia Reactions: No Hx Malignant Hyperthermia: No Has any member of the family had a problem w/ anesthesia?: No Meds Allergies/Adverse Reactions: Allergies Allergy/AdvReac Type Severity Reaction Status Date / Time Penicillins Allergy RASH Verified 02/05/17 10:51 - Medications Medications: Current Medications Acetaminophen (Tylenol 325mg Tab) 650 mg PO Q4 PRN PRN Reason: Fever >100.4 F Acetaminophen (Tylenol 325mg Tab) 650 mg PO Q4 PRN PRN Reason: Pain, moderate (4-7) Last Admin: 02/09/17 22:37 Dose: 650 mg Heparin Sodium (Porcine) (Heparin) 5,000 units SC Q12 YUSRA PRN Reason: Protocol Last Admin: 02/10/17 09:58 Dose: 5,000 units Hydromorphone HCl (Dilaudid) 0.5 mg IVP Q6 PRN PRN Reason: Pain, severe (8-10) Vancomycin HCl 1 gm/ Sodium (Chloride) 250 mls @ 166.667 mls/hr IVPB Q12@0800, 1999 [facility] Last Admin: 02/10/17 09:59 Dose: 166.667 mls/hr Ibuprofen (Motrin Tab) 600 mg PO Q6 PRN PRN Reason: Pain, moderate (4-7) Last Admin: 02/10/17 06:54 Dose: 600 mg Ketorolac Tromethamine (Toradol) 15 mg IVP Q6 PRN PRN Reason: Pain, moderate (4-7) Ondansetron HCl (Zofran Odt) 4 mg PO Q8H PRN PRN Reason: Nausea/Vomiting Last Admin: 02/09/17 22:56 Dose: 4 mg Oxycodone/Acetaminophen (Percocet 5/325 Mg Tab) 2 tab PO Q4 PRN PRN Reason: Pain, Mild (1-3) Stop: 02/12/17 14:34 Physical Exam - Constitutional Appears: Well - Head Exam Head Exam: ATRAUMATIC, NORMAL INSPECTION, NORMOCEPHALIC - Eye Exam Eye Exam: EOMI, Normal appearance, PERRL - ENT Exam ENT Exam: Mucous Membranes Moist, Normal Exam - Neck Exam Neck exam: Positive for: Normal Inspection - Respiratory Exam Additional comments: right side chest tube. decreased breath sounds at the bases bilaterally - Cardiovascular Exam Cardiovascular Exam: REGULAR RHYTHM, +S1, +S2 - GI/Abdominal Exam GI & Abdominal Exam: Normal Bowel Sounds, Soft. absent: Tenderness - Extremities Exam Extremities exam: Positive for: normal inspection - Back Exam Back exam: NORMAL INSPECTION - Neurological Exam Neurological exam: Alert, CN II-XII Intact, Normal Gait, Oriented x3, Reflexes Normal - Expanded Neurological Exam Expanded Patient oriented to: person, place, time Cranial nerves: EOM's Intact: Normal, Gag Reflex: Normal, Nystagmus: Normal Ataxia: No Cerebellar Function: Finger to Nose: Normal, Heel to Humphrey: Normal Upper motor neuron: Babinski Sign: Normal Sensory exam: Lower Extremity Light Touch: Normal, Lower Extremity Pin Prick: Normal, Upper Extremity Light Touch: Normal, Upper Extremity Pin Prick: Normal Neuro motor strength exam: Left Upper Extremity: 5, Right Upper Extremity: 5, Left Lower Extremity: 5, Right Lower Extremity: 5 DTR: Achilles Tendon Left: 2+, Achilles Tendon Right: 2+, Bicep Left: 2+, Bicep Right: 2+, Brachioradialis Left: 2+, Brachioradialis Right: 2+, Patellar Left: 2 +, Patellar Right: 2+, Tricep Left: 2+, Tricep Right: 2+ - Psychiatric Exam Psychiatric exam: Normal Affect, Normal Mood - Skin Skin Exam: Dry, Intact, Normal Color, Warm Results - Vital Signs Recent Vital Signs: Last Vital Signs Temp 98.6 F 02/10/17 16:30 Pulse 86 02/10/17 16:30 Resp 22 02/10/17 16:30 BP 136/81 02/10/17 16:30 Pulse Ox 97 02/10/17 16:30 - Labs Result Diagrams: 02/10/17 04:30 02/10/17 04:30 Labs: Laboratory Results - last 24 hr 02/10/17 02/10/17 04:30 04:30 WBC 12.3 H D RBC 5.29 Hgb 16.1 Hct 45.9 MCV 86.8 MCH 30.4 MCHC 35.0 RDW 12.9 Plt Count 200 Sodium 141 Potassium 4.0 Chloride 106 Carbon Dioxide 26 Anion Gap 13 BUN 11 Creatinine 0.9 Est GFR ( Amer) > 60 Est GFR (Non-Af Amer) > 60 Random Glucose 90 Calcium 9.6 - Imaging and Cardiology CT scan - head Status: Image reviewed by me, Report reviewed by me (Normal CT head) Assessment & Plan (1) Encephalopathy Assessment and Plan: Likely due to hypoxia and anesthesia. Currently back to baseline. Normal CT head. No neurologic deficits. No further testing is recommended. Thank you. Status: Resolved Priority: Low
--- NOTE | 2017-02-10 20:59 | CON ---
DATE: 02/10/2017 HISTORY OF PRESENT ILLNESS: The patient is a 26-year-old male, who is referred for pulmonary evaluation by Dr. De Anda. He was admitted with a spontaneous right pneumothorax requiring chest tube therapy. He had a chest tube placed and when the chest tube was removed several days later, he had recurrence of pneumothorax and ended up in the operating room with a VATS procedure and pleurodesis with reinsertion of chest tube and then developed subcutaneous emphysema. He appears much more comfortable this morning. PAST MEDICAL HISTORY: Unremarkable. 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 FAMILY HISTORY: Unremarkable. PHYSICAL EXAMINATION: GENERAL: The patient is alert and oriented, appears comfortable except for some pain at chest tube site on the right side. VITAL SIGNS: Blood pressure 134/73. Respiratory rate is 20 per minute. He is afebrile. O2 saturation is 98% on room air. HEENT: Pupils are equal and reactive to light and accommodation. Mouth shows fair hygiene. JVP flat. LUNGS: Clear. HEART: Regular, no murmurs or gallops. ABDOMEN: Soft, nontender, no organomegaly. Chest tube is in place on the right anterior chest wall area. EXTREMITIES: Show no edema or cyanosis. CENTRAL NERVOUS SYSTEM: Grossly intact. Chest x-ray from 02/10/2017 shows a right chest tube in good position. There is atelectasis, right lower lobe, but no evidence of recurrence of pneumothorax noted. There is mild subcutaneous emphysema on the right side. Rest of the labs are unremarkable. IMPRESSION: Spontaneous pneumothorax, right lung, questionable etiology since CAT scan does not show any emphysematous blebs. There is no history of trauma. PLAN: The plan is continuing chest tube therapy as ordered. We would obtain blood work for alpha-1 antitrypsin and also MIGEL levels to rule sarcoidosis and to rule out alpha-1 antitrypsin deficiency. We will continue to follow with you. Yovany David MD
[2017-02-11 05:35] LABS: HEMATOCRIT 45.4 % (35.0-51.0); MEAN CELL VOLUME 87.6 fl (80.0-94.0); MEAN CORPUSCULAR HEMOGLOBIN 29.9 pg (27.0-31.0); MEAN CORPUSCULAR HGB CONC 34.2 g/dL (33.0-37.0); RED CELL DISTRIBUTION WIDTH 12.8 % (11.5-14.5); WHITE BLOOD COUNT 9.1 K/uL (4.8-10.8)
[2017-02-11 05:41] LABS: ALB/GLOB RATIO 1.4 (1.0-2.1); ALKALINE PHOSPHATASE 55 U/L (38-126); ALT/SGPT 36 U/L (21-72); AST/SGOT 20 U/L (17-59); BILIRUBIN,TOTAL 0.9 mg/dl (0.2-1.3); BLOOD UREA NITROGEN 11 mg/dl (9-20); CALCIUM 9.6 mg/dL (8.4-10.2); CARBON DIOXIDE 30 mmol/L (22-30); CHLORIDE 103 mmol/L (98-107); GFR AFRICAN-AMERICAN > 60; GLUCOSE,RANDOM 83 mg/dL (75-110); POTASSIUM 4.2 MMOL/L (3.6-5.0); SODIUM 142 mmol/l (132-148); TOTAL PROTEIN 6.9 G/DL (6.3-8.2)
--- NOTE | 2017-02-11 09:19 | CP.PCM.PN ---
Subjective - Date & Time of Evaluation Date of Evaluation: 02/11/17 Time of Evaluation: 09:19 - Subjective Subjective: NO APPARENT DISTRESS NO SOB CHEST TUBE IN PLACE OOB TO CHAIR Objective - Vital Signs/Intake and Output Vital Signs (last 24 hours): Temp Pulse Resp BP Pulse Ox 98.3 F 62 13 114/68 95 02/11/17 08:15 02/11/17 08:15 02/11/17 08:15 02/11/17 08:15 02/11/17 08:15 Intake and Output: 02/11/17 02/11/17 06:59 18:59 Intake Total 490 Output Total 830 Balance -340 - Medications Medications: Current Medications Acetaminophen (Tylenol 325mg Tab) 650 mg PO Q4 PRN PRN Reason: Fever >100.4 F Acetaminophen (Tylenol 325mg Tab) 650 mg PO Q4 PRN PRN Reason: Pain, moderate (4-7) Last Admin: 02/09/17 22:37 Dose: 650 mg Heparin Sodium (Porcine) (Heparin) 5,000 units SC Q12 YUSRA PRN Reason: Protocol Last Admin: 02/11/17 08:37 Dose: 5,000 units Hydromorphone HCl (Dilaudid) 0.5 mg IVP Q6 PRN PRN Reason: Pain, severe (8-10) Vancomycin HCl 1 gm/ Sodium (Chloride) 250 mls @ 166.667 mls/hr IVPB Q12@0800, 2000 [facility] Last Admin: 02/11/17 08:37 Dose: 166.667 mls/hr Ibuprofen (Motrin Tab) 600 mg PO Q6 PRN PRN Reason: Pain, moderate (4-7) Last Admin: 02/10/17 19:52 Dose: 600 mg Ketorolac Tromethamine (Toradol) 15 mg IVP Q6 PRN PRN Reason: Pain, moderate (4-7) Ondansetron HCl (Zofran Odt) 4 mg PO Q8H PRN PRN Reason: Nausea/Vomiting Last Admin: 02/09/17 22:56 Dose: 4 mg Oxycodone/Acetaminophen (Percocet 5/325 Mg Tab) 2 tab PO Q4 PRN PRN Reason: Pain, Mild (1-3) Stop: 02/12/17 14:34 - Labs Labs: 02/11/17 04:20 02/11/17 04:20 PT 12.2 Seconds (9.8-13.1) 02/05/17 11:23 INR 1.1 (0.9-1.2) 02/05/17 11:23 APTT 31.0 Seconds (25.6-37.1) 02/05/17 11:23 - Constitutional Appears: No Acute Distress - Head Exam Head Exam: ATRAUMATIC, NORMAL INSPECTION, NORMOCEPHALIC - Eye Exam Eye Exam: EOMI, Normal appearance, PERRL Pupil Exam: NORMAL ACCOMODATION, PERRL - ENT Exam ENT Exam: Mucous Membranes Moist, Normal Exam - Neck Exam Neck Exam: Full ROM, Normal Inspection. absent: Lymphadenopathy - Respiratory Exam Respiratory Exam: Clear to Ausculation Bilateral, NORMAL BREATHING PATTERN - Cardiovascular Exam Cardiovascular Exam: REGULAR RHYTHM, +S1, +S2. absent: Murmur - GI/Abdominal Exam GI & Abdominal Exam: Soft, Normal Bowel Sounds. absent: Tenderness - Rectal Exam Rectal Exam: NORMAL INSPECTION - Extremities Exam Extremities Exam: Full ROM, Normal Capillary Refill, Normal Inspection. absent : Joint Swelling, Pedal Edema - Back Exam Back Exam: NORMAL INSPECTION - Neurological Exam Neurological Exam: Alert, Awake, CN II-XII Intact, Normal Gait, Oriented x3 - Psychiatric Exam Psychiatric exam: Normal Affect, Normal Mood - Skin Skin Exam: Dry, Intact, Normal Color, Warm Assessment and Plan - Assessment and Plan (Free Text) Assessment: SPONTANEOUS PNEUMOTHORAX RESOLVED CXR-REVIEWED--NO EVIDENCE OF PNEUMOTHORAX--R CHEST TUBE IN PLACE Plan: CONTINUE RX PER THORACIC SURGEON
--- NOTE | 2017-02-11 09:55 | RAD ---
PROCEDURE: CHEST RADIOGRAPH, 1 VIEW HISTORY: R pneumothorax s/p chest tube COMPARISON: 02/10/2017 FINDINGS: LUNGS: Clear. PLEURA: Chest tube in right lung apex. No visible pneumothorax CARDIOVASCULAR: Normal. OSSEOUS STRUCTURES: No significant abnormalities. VISUALIZED UPPER ABDOMEN: Normal. OTHER FINDINGS: None. IMPRESSION: No evidence of pneumothorax
--- NOTE | 2017-02-11 12:21 | CP.PCM.PN ---
Subjective - Date & Time of Evaluation Date of Evaluation: 02/11/17 Time of Evaluation: 08:20 - Subjective Subjective: Surgery Progress note. Dr. De Anda Pt seen and examined at bedside. No acute events overnight. Patient denies any new complaints. No acute distress. Denies any chest pain. No shortness of breath. No F/C. Tolerating diet. Objective - Vital Signs/Intake and Output Vital Signs (last 24 hours): Temp Pulse Resp BP Pulse Ox 98.2 F 70 16 133/90 96 02/11/17 12:10 02/11/17 12:10 02/11/17 12:10 02/11/17 12:10 02/11/17 12:10 Intake and Output: 02/11/17 02/11/17 06:59 18:59 Intake Total 490 Output Total 830 Balance -340 - Medications Medications: Current Medications Acetaminophen (Tylenol 325mg Tab) 650 mg PO Q4 PRN PRN Reason: Fever >100.4 F Acetaminophen (Tylenol 325mg Tab) 650 mg PO Q4 PRN PRN Reason: Pain, moderate (4-7) Last Admin: 02/09/17 22:37 Dose: 650 mg Heparin Sodium (Porcine) (Heparin) 5,000 units SC Q12 YUSRA PRN Reason: Protocol Last Admin: 02/11/17 08:37 Dose: 5,000 units Hydromorphone HCl (Dilaudid) 0.5 mg IVP Q6 PRN PRN Reason: Pain, severe (8-10) Vancomycin HCl 1 gm/ Sodium (Chloride) 250 mls @ 166.667 mls/hr IVPB Q12@0800, 2000 [facility] Last Admin: 02/11/17 08:37 Dose: 166.667 mls/hr Ibuprofen (Motrin Tab) 600 mg PO Q6 PRN PRN Reason: Pain, moderate (4-7) Last Admin: 02/10/17 19:52 Dose: 600 mg Ketorolac Tromethamine (Toradol) 15 mg IVP Q6 PRN PRN Reason: Pain, moderate (4-7) Ondansetron HCl (Zofran Odt) 4 mg PO Q8H PRN PRN Reason: Nausea/Vomiting Last Admin: 02/09/17 22:56 Dose: 4 mg Oxycodone/Acetaminophen (Percocet 5/325 Mg Tab) 2 tab PO Q4 PRN PRN Reason: Pain, Mild (1-3) Stop: 02/12/17 14:34 - Labs Labs: 02/11/17 04:20 02/11/17 04:20 PT 12.2 Seconds (9.8-13.1) 02/05/17 11:23 INR 1.1 (0.9-1.2) 02/05/17 11:23 APTT 31.0 Seconds (25.6-37.1) 02/05/17 11:23 - Constitutional Appears: Well, No Acute Distress - Head Exam Head Exam: ATRAUMATIC, NORMAL INSPECTION, NORMOCEPHALIC - Eye Exam Eye Exam: EOMI - ENT Exam ENT Exam: Mucous Membranes Moist - Respiratory Exam Respiratory Exam: NORMAL BREATHING PATTERN Additional comments: Right sided chest tube in place on suction. No air leaks. Dressing changed. Some subcutaneous crepitus present. - GI/Abdominal Exam GI & Abdominal Exam: Soft. absent: Distended, Firm, Guarding, Rigid, Tenderness - Extremities Exam Extremities Exam: Normal Inspection. absent: Calf Tenderness - Neurological Exam Neurological Exam: Alert, Awake, Oriented x3 - Psychiatric Exam Psychiatric exam: Normal Affect, Normal Mood - Skin Skin Exam: Normal Color, Warm Assessment and Plan - Assessment and Plan (Free Text) Assessment: 26M w. recurrent R PTX following CT removal, s/p new CT and talc pleurodesison , POD#2 - CT: 100cc/24 hr serosang output, CT tidling, no air leaks - CXR stable - keep CT to suction for now - encourage IS and OOB - Pain management Further recs as per Dr. Neetu Shelby PGY1
--- NOTE | 2017-02-11 13:06 | CP.PCM.PN ---
Subjective - Date & Time of Evaluation Date of Evaluation: 02/11/17 Time of Evaluation: 13:04 - Subjective Subjective: Pt s/e. No c/o. No sob. Afebrile. vss. wbc-9.1k. chest tube-100 ss no air leak. cxr-No pneumo. a/p: Continue current care. Objective - Vital Signs/Intake and Output Vital Signs (last 24 hours): Temp Pulse Resp BP Pulse Ox 98.2 F 70 16 133/90 96 02/11/17 12:10 02/11/17 12:10 02/11/17 12:10 02/11/17 12:10 02/11/17 12:10 Intake and Output: 02/11/17 02/11/17 06:59 18:59 Intake Total 490 Output Total 830 Balance -340 - Medications Medications: Current Medications Acetaminophen (Tylenol 325mg Tab) 650 mg PO Q4 PRN PRN Reason: Fever >100.4 F Acetaminophen (Tylenol 325mg Tab) 650 mg PO Q4 PRN PRN Reason: Pain, moderate (4-7) Last Admin: 02/09/17 22:37 Dose: 650 mg Heparin Sodium (Porcine) (Heparin) 5,000 units SC Q12 COUNTS INCLUDE 234 BEDS AT THE [facility] PRN Reason: Protocol Last Admin: 02/11/17 08:37 Dose: 5,000 units Hydromorphone HCl (Dilaudid) 0.5 mg IVP Q6 PRN PRN Reason: Pain, severe (8-10) Vancomycin HCl 1 gm/ Sodium (Chloride) 250 mls @ 166.667 mls/hr IVPB Q12@0800, 2000 [facility]S [facility]CLUDE 234 BEDS AT [facility] Last Admin: 02/11/17 08:37 Dose: 166.667 mls/hr Ibuprofen (Motrin Tab) 600 mg PO Q6 PRN PRN Reason: Pain, moderate (4-7) Last Admin: 02/10/17 19:52 Dose: 600 mg Ketorolac Tromethamine (Toradol) 15 mg IVP Q6 PRN PRN Reason: Pain, moderate (4-7) Ondansetron HCl (Zofran Odt) 4 mg PO Q8H PRN PRN Reason: Nausea/Vomiting Last Admin: 02/09/17 22:56 Dose: 4 mg Oxycodone/Acetaminophen (Percocet 5/325 Mg Tab) 2 tab PO Q4 PRN PRN Reason: Pain, Mild (1-3) Stop: 02/12/17 14:34 - Labs Labs: 02/11/17 04:20 02/11/17 04:20 PT 12.2 Seconds (9.8-13.1) 02/05/17 11:23 INR 1.1 (0.9-1.2) 02/05/17 11:23 APTT 31.0 Seconds (25.6-37.1) 02/05/17 11:23
[2017-02-12 05:34] LABS: HEMATOCRIT 46.4 % (35.0-51.0); MEAN CELL VOLUME 87.2 fl (80.0-94.0); MEAN CORPUSCULAR HEMOGLOBIN 30.3 pg (27.0-31.0); MEAN CORPUSCULAR HGB CONC 34.8 g/dL (33.0-37.0); RED CELL DISTRIBUTION WIDTH 12.6 % (11.5-14.5); WHITE BLOOD COUNT 10.2 K/uL (4.8-10.8)
--- NOTE | 2017-02-12 07:58 | CP.PCM.PN ---
Subjective - Date & Time of Evaluation Date of Evaluation: 02/12/17 Time of Evaluation: 07:55 - Subjective Subjective: Surgery: Dr. De Anda Pt seen and examined. Resting comfortably in bed. No complaints. No issues w. breathing. Objective - Vital Signs/Intake and Output Vital Signs (last 24 hours): Temp Pulse Resp BP Pulse Ox 98.6 F 76 19 123/68 97 02/12/17 04:05 02/12/17 04:05 02/12/17 04:05 02/12/17 04:05 02/12/17 04:05 Intake and Output: 02/12/17 02/12/17 06:59 18:59 Intake Total 370 Output Total 665 Balance -295 - Medications Medications: Current Medications Acetaminophen (Tylenol 325mg Tab) 650 mg PO Q4 PRN PRN Reason: Fever >100.4 F Acetaminophen (Tylenol 325mg Tab) 650 mg PO Q4 PRN PRN Reason: Pain, moderate (4-7) Last Admin: 02/09/17 22:37 Dose: 650 mg Heparin Sodium (Porcine) (Heparin) 5,000 units SC Q12 YUSRA PRN Reason: Protocol Last Admin: 02/11/17 20:35 Dose: 5,000 units Hydromorphone HCl (Dilaudid) 0.5 mg IVP Q6 PRN PRN Reason: Pain, severe (8-10) Vancomycin HCl 1 gm/ Sodium (Chloride) 250 mls @ 166.667 mls/hr IVPB Q12@0800, 2000 [facility] Last Admin: 02/11/17 19:15 Dose: 166.667 mls/hr Ibuprofen (Motrin Tab) 600 mg PO Q6 PRN PRN Reason: Pain, moderate (4-7) Last Admin: 02/11/17 15:19 Dose: 600 mg Ketorolac Tromethamine (Toradol) 15 mg IVP Q6 PRN PRN Reason: Pain, moderate (4-7) Ondansetron HCl (Zofran Odt) 4 mg PO Q8H PRN PRN Reason: Nausea/Vomiting Last Admin: 02/09/17 22:56 Dose: 4 mg Oxycodone/Acetaminophen (Percocet 5/325 Mg Tab) 2 tab PO Q4 PRN PRN Reason: Pain, Mild (1-3) Stop: 02/12/17 14:34 - Labs Labs: 02/12/17 04:45 02/11/17 04:20 PT 12.2 Seconds (9.8-13.1) 02/05/17 11:23 INR 1.1 (0.9-1.2) 02/05/17 11:23 APTT 31.0 Seconds (25.6-37.1) 02/05/17 11:23 - Constitutional Appears: Non-toxic, No Acute Distress - Head Exam Head Exam: ATRAUMATIC, NORMOCEPHALIC - Eye Exam Eye Exam: EOMI - ENT Exam ENT Exam: Mucous Membranes Moist - Neck Exam Neck Exam: Full ROM - Respiratory Exam Respiratory Exam: NORMAL BREATHING PATTERN. absent: Accessory Muscle Use, Respiratory Distress Additional comments: R side CT in place - Extremities Exam Extremities Exam: absent: Calf Tenderness, Pedal Edema - Neurological Exam Neurological Exam: Alert, Awake, Oriented x3 Assessment and Plan - Assessment and Plan (Free Text) Assessment: 26M w. recurrent R PTX, s/p CT placement and TALC pleurodesis, POD#3 -CT: 15cc/12hr serosang, tidling no air leak -CXR stable -keep CT to suction -continue w. daily CXR -will d/w attending Magdaleno PGY3
[2017-02-12] MEDS ORDERED: Sodium Chloride 0.9% 50 ML IV ONE (09:06)
[2017-02-12] MEDS ORDERED: Iohexol 300 100 ML IJ ONE (09:06)
--- NOTE | 2017-02-12 09:57 | CT ---
PROCEDURE: CT Chest with contrast HISTORY: comparison COMPARISON: Comparison is made to the previous study dated 02/08/2017 TECHNIQUE: Contiguous axial images were obtained through the chest with intravenous contrast enhancement. Sagittal and coronal reconstructions were performed. IV contrast: 100 mL of Omnipaque 300 Radiation dose (DLP): 604.42 mGy-cm. This CT exam was performed using one or more of the following dose reduction techniques: Automated exposure control, adjustment of the mA and/or kV according to patient size, and/or use of iterative reconstruction technique. FINDINGS: LUNGS: Re- demonstration of foci of airspace consolidation at the posterior portions of the mid and lower lungs bilaterally larger on the right. These consolidation have not significantly changed in size compared to the previous exam and may represent atelectasis. Differential diagnosis includes aspiration or less likely pneumonia. MEDIASTINUM: Unremarkable thoracic aorta. No aneurysm or dissection. Normal sized heart. Main pulmonary artery unremarkable. No vascular congestion. No lymphadenopathy. PLEURA: Again seen is right chest C tube in place with the tip is seen in this study at the medial aspect of the right lung apex. There is residual very small less than 5 percent pneumothorax seen at the upper portion of the right chest slightly increase since the previous exam. There is a trace right-sided pleural effusion. BONES: No fracture. No destructive lesion. UPPER ABDOMEN: Grossly unremarkable. OTHER FINDINGS: None. IMPRESSION: Residual very small less than 5 percent pneumothorax at the upper portion of the right chest slightly increase compared to the previous exam. Otherwise no significant interval change. Persistent airspace consolidation at the posterior lower portion of the lungs larger on the right may represent atelectasis or less likely aspiration pneumonia.
--- NOTE | 2017-02-12 10:50 | RAD ---
PROCEDURE: CHEST RADIOGRAPH, 1 VIEW HISTORY: R pneumothorax s/p chest tube COMPARISON: 02/11/2017 FINDINGS: LUNGS: Clear. PLEURA: Right-sided chest tube in the right lung apex. No evidence of pneumothorax CARDIOVASCULAR: Normal. OSSEOUS STRUCTURES: No significant abnormalities. VISUALIZED UPPER ABDOMEN: Normal. OTHER FINDINGS: None. IMPRESSION: Right-sided chest tube in the right lung apex. No evidence of pneumothorax
--- NOTE | 2017-02-12 12:07 | CP.PCM.PN ---
Subjective - Date & Time of Evaluation Date of Evaluation: 02/12/17 Time of Evaluation: 12:12 - Subjective Subjective: R CHEST TUBE IN PLACE NO CHEST PAINS/COUGH NO SOB Objective - Vital Signs/Intake and Output Vital Signs (last 24 hours): Temp Pulse Resp BP Pulse Ox 98.1 F 76 14 127/72 97 02/12/17 08:00 02/12/17 08:00 02/12/17 08:00 02/12/17 08:00 02/12/17 08:00 Intake and Output: 02/12/17 02/12/17 06:59 18:59 Intake Total 370 610 Output Total 665 300 Balance -295 310 - Medications Medications: Current Medications Acetaminophen (Tylenol 325mg Tab) 650 mg PO Q4 PRN PRN Reason: Fever >100.4 F Acetaminophen (Tylenol 325mg Tab) 650 mg PO Q4 PRN PRN Reason: Pain, moderate (4-7) Last Admin: 02/09/17 22:37 Dose: 650 mg Heparin Sodium (Porcine) (Heparin) 5,000 units SC Q12 [facility] PRN Reason: Protocol Last Admin: 02/12/17 08:37 Dose: 5,000 units Hydromorphone HCl (Dilaudid) 0.5 mg IVP Q6 PRN PRN Reason: Pain, severe (8-10) Vancomycin HCl 1 gm/ Sodium (Chloride) 250 mls @ 166.667 mls/hr IVPB Q12@0800, 2000 [facility] Last Admin: 02/12/17 08:31 Dose: 166.667 mls/hr Ibuprofen (Motrin Tab) 600 mg PO Q6 PRN PRN Reason: Pain, moderate (4-7) Last Admin: 02/11/17 15:19 Dose: 600 mg Ketorolac Tromethamine (Toradol) 15 mg IVP Q6 PRN PRN Reason: Pain, moderate (4-7) Ondansetron HCl (Zofran Odt) 4 mg PO Q8H PRN PRN Reason: Nausea/Vomiting Last Admin: 02/09/17 22:56 Dose: 4 mg Oxycodone/Acetaminophen (Percocet 5/325 Mg Tab) 2 tab PO Q4 PRN PRN Reason: Pain, Mild (1-3) Stop: 02/12/17 14:34 - Labs Labs: 02/12/17 04:45 02/11/17 04:20 PT 12.2 Seconds (9.8-13.1) 02/05/17 11:23 INR 1.1 (0.9-1.2) 02/05/17 11:23 APTT 31.0 Seconds (25.6-37.1) 02/05/17 11:23 - Constitutional Appears: No Acute Distress - Head Exam Head Exam: ATRAUMATIC, NORMAL INSPECTION, NORMOCEPHALIC - Eye Exam Eye Exam: EOMI, Normal appearance, PERRL Pupil Exam: NORMAL ACCOMODATION, PERRL - ENT Exam ENT Exam: Mucous Membranes Moist, Normal Exam - Neck Exam Neck Exam: Full ROM, Normal Inspection. absent: Lymphadenopathy - Respiratory Exam Respiratory Exam: Clear to Ausculation Bilateral, NORMAL BREATHING PATTERN - Cardiovascular Exam Cardiovascular Exam: REGULAR RHYTHM, +S1, +S2. absent: Murmur - GI/Abdominal Exam GI & Abdominal Exam: Soft, Normal Bowel Sounds. absent: Tenderness - Rectal Exam Rectal Exam: NORMAL INSPECTION - Extremities Exam Extremities Exam: Full ROM, Normal Capillary Refill, Normal Inspection. absent : Joint Swelling, Pedal Edema - Back Exam Back Exam: NORMAL INSPECTION - Neurological Exam Neurological Exam: Alert, Awake, CN II-XII Intact, Normal Gait, Oriented x3 - Psychiatric Exam Psychiatric exam: Normal Affect, Normal Mood - Skin Skin Exam: Dry, Intact, Normal Color, Warm Assessment and Plan - Assessment and Plan (Free Text) Assessment: SPONTANEOUS R PNEUMOTHORAX--STILL HAS RESIDUAL 5% APICAL PNEUMOTHORAX AN R BASAL PLEURAL RXN ON CT SCAN DUE TO TALC PLEURODESES MIGEL AND ALPHA 1 ANTITRIPSEN LEVELS NORMAL Plan: MAY GO TO REGULAR FLOOR IF OK WITH DR MCKENZIE WILL CONTINUE TO FOLLOW
--- NOTE | 2017-02-12 12:26 | CP.PCM.PN ---
Subjective - Date & Time of Evaluation Date of Evaluation: 02/12/17 Time of Evaluation: 12:24 - Subjective Subjective: pt s/e. No c/o. afebrile. vss. chest [id number] of ss. no air leak. [id number] ct-tiny apical pneumo, some atelectasis right lower lobe. a/p: Doing well. Continure current care. Objective - Vital Signs/Intake and Output Vital Signs (last 24 hours): Temp Pulse Resp BP Pulse Ox 98.1 F 76 14 127/72 97 02/12/17 08:00 02/12/17 08:00 02/12/17 08:00 02/12/17 08:00 02/12/17 08:00 Intake and Output: 02/12/17 02/12/17 06:59 18:59 Intake Total 370 610 Output Total 665 300 Balance -295 310 - Medications Medications: Current Medications Acetaminophen (Tylenol 325mg Tab) 650 mg PO Q4 PRN PRN Reason: Fever >100.4 F Acetaminophen (Tylenol 325mg Tab) 650 mg PO Q4 PRN PRN Reason: Pain, moderate (4-7) Last Admin: 02/09/17 22:37 Dose: 650 mg Heparin Sodium (Porcine) (Heparin) 5,000 units SC Q12 [facility] PRN Reason: Protocol Last Admin: 02/12/17 08:37 Dose: 5,000 units Hydromorphone HCl (Dilaudid) 0.5 mg IVP Q6 PRN PRN Reason: Pain, severe (8-10) Vancomycin HCl 1 gm/ Sodium (Chloride) 250 mls @ 166.667 mls/hr IVPB Q12@0800, 2000 [facility] Last Admin: 02/12/17 08:31 Dose: 166.667 mls/hr Ibuprofen (Motrin Tab) 600 mg PO Q6 PRN PRN Reason: Pain, moderate (4-7) Last Admin: 02/11/17 15:19 Dose: 600 mg Ketorolac Tromethamine (Toradol) 15 mg IVP Q6 PRN PRN Reason: Pain, moderate (4-7) Ondansetron HCl (Zofran Odt) 4 mg PO Q8H PRN PRN Reason: Nausea/Vomiting Last Admin: 02/09/17 22:56 Dose: 4 mg Oxycodone/Acetaminophen (Percocet 5/325 Mg Tab) 2 tab PO Q4 PRN PRN Reason: Pain, Mild (1-3) Stop: 02/12/17 14:34 - Labs Labs: 02/12/17 04:45 02/11/17 04:20 PT 12.2 Seconds (9.8-13.1) 02/05/17 11:23 INR 1.1 (0.9-1.2) 02/05/17 11:23 APTT 31.0 Seconds (25.6-37.1) 02/05/17 11:23
[2017-02-13 07:24] LABS: MEAN CELL VOLUME 86.4 fl (80.0-94.0); MEAN CORPUSCULAR HGB CONC 34.8 g/dL (33.0-37.0); RED CELL DISTRIBUTION WIDTH 12.8 % (11.5-14.5); WHITE BLOOD COUNT 8.1 K/uL (4.8-10.8)
--- NOTE | 2017-02-13 09:43 | CP.PCM.PN ---
Subjective - Date & Time of Evaluation Date of Evaluation: 02/13/17 Time of Evaluation: 09:43 - Subjective Subjective: THoracic surgery for Dr. De Anda Pt s&e. ROMULO. Denies F/C/N/V/D/CP/SOB. CT on suction. Objective - Vital Signs/Intake and Output Vital Signs (last 24 hours): Temp Pulse Resp BP Pulse Ox 98.3 F 79 18 134/80 95 02/13/17 08:55 02/13/17 08:55 02/13/17 08:55 02/13/17 08:55 02/13/17 08:55 - Medications Medications: Current Medications Acetaminophen (Tylenol 325mg Tab) 650 mg PO Q4 PRN PRN Reason: Fever >100.4 F Acetaminophen (Tylenol 325mg Tab) 650 mg PO Q4 PRN PRN Reason: Pain, moderate (4-7) Last Admin: 02/09/17 22:37 Dose: 650 mg Heparin Sodium (Porcine) (Heparin) 5,000 units SC Q12 [facility] PRN Reason: Protocol Last Admin: 02/13/17 09:02 Dose: 5,000 units Vancomycin HCl 1 gm/ Sodium (Chloride) 250 mls @ 166.667 mls/hr IVPB Q12@0800, 2000 [facility] Last Admin: 02/13/17 08:48 Dose: 166.667 mls/hr Ibuprofen (Motrin Tab) 600 mg PO Q6 PRN PRN Reason: Pain, moderate (4-7) Last Admin: 02/11/17 15:19 Dose: 600 mg Ketorolac Tromethamine (Toradol) 15 mg IVP Q6 PRN PRN Reason: Pain, moderate (4-7) Ondansetron HCl (Zofran Odt) 4 mg PO Q8H PRN PRN Reason: Nausea/Vomiting Last Admin: 02/09/17 22:56 Dose: 4 mg - Labs Labs: 02/13/17 05:30 02/11/17 04:20 PT 12.2 Seconds (9.8-13.1) 02/05/17 11:23 INR 1.1 (0.9-1.2) 02/05/17 11:23 APTT 31.0 Seconds (25.6-37.1) 02/05/17 11:23 - Constitutional Appears: No Acute Distress - Head Exam Head Exam: ATRAUMATIC, NORMAL INSPECTION, NORMOCEPHALIC - Eye Exam Eye Exam: EOMI, Normal appearance, PERRL Pupil Exam: NORMAL ACCOMODATION, PERRL - ENT Exam ENT Exam: Mucous Membranes Moist, Normal Exam - Neck Exam Neck Exam: Full ROM, Normal Inspection. absent: Lymphadenopathy - Respiratory Exam Respiratory Exam: Clear to Ausculation Bilateral, NORMAL BREATHING PATTERN Additional comments: Ct in place. Dressing changed. 15cc ss fluids. No leak - Cardiovascular Exam Cardiovascular Exam: REGULAR RHYTHM, +S1, +S2. absent: Murmur - GI/Abdominal Exam GI & Abdominal Exam: Soft, Normal Bowel Sounds. absent: Tenderness - Exam Exam: Circumcision, NORMAL INSPECTION External exam: NORMAL EXTERNAL EXAM Speculum exam: NORMAL SPECULUM EXAM Bimanual exam: NORMAL BIMANUAL EXAM - Extremities Exam Extremities Exam: Full ROM, Normal Inspection - Back Exam Back Exam: NORMAL INSPECTION - Neurological Exam Neurological Exam: Alert, Awake, CN II-XII Intact, Normal Gait, Oriented x3 - Psychiatric Exam Psychiatric exam: Normal Affect, Normal Mood - Skin Skin Exam: Dry, Intact, Normal Color, Warm Assessment and Plan - Assessment and Plan (Free Text) Assessment: R chest tube for pneumothorax. -F/U CXR this AM -Cont. current management Will REED De Anda
[2017-02-14 08:09] LABS: HEMATOCRIT 45.2 % (35.0-51.0); MEAN CELL VOLUME 86.7 fl (80.0-94.0); MEAN CORPUSCULAR HEMOGLOBIN 30.5 pg (27.0-31.0); MEAN CORPUSCULAR HGB CONC 35.2 g/dL (33.0-37.0); WHITE BLOOD COUNT 8.1 K/uL (4.8-10.8)
--- NOTE | 2017-02-14 09:00 | RAD ---
PROCEDURE: CHEST RADIOGRAPH, 1 VIEW HISTORY: chest tube COMPARISON: None available. FINDINGS: LUNGS: Clear. PLEURA: No pneumothorax or pleural fluid seen. Right chest tube in place. CARDIOVASCULAR: Normal. OSSEOUS STRUCTURES: No significant abnormalities. VISUALIZED UPPER ABDOMEN: Normal. OTHER FINDINGS: None. IMPRESSION: Right chest tube in place. No evidence of pneumothorax.
--- NOTE | 2017-02-14 09:06 | RAD ---
PROCEDURE: CHEST RADIOGRAPH, 1 VIEW HISTORY: chest tube COMPARISON: None available. FINDINGS: LUNGS: Clear. PLEURA: Right chest tube in place. No gross pneumothorax. CARDIOVASCULAR: Normal. OSSEOUS STRUCTURES: No significant abnormalities. VISUALIZED UPPER ABDOMEN: Normal. OTHER FINDINGS: None. IMPRESSION: Right chest tube in place. No gross pneumothorax.
--- NOTE | 2017-02-14 11:47 | CP.PCM.PN ---
Subjective - Date & Time of Evaluation Date of Evaluation: 02/14/17 Time of Evaluation: 11:47 - Subjective Subjective: FEELS WELL NO CHEST PAINS/SOB CHEST TUBE STILL IN PLACE Objective - Vital Signs/Intake and Output Vital Signs (last 24 hours): Temp Pulse Resp BP Pulse Ox 97.7 F 71 20 132/74 96 02/14/17 08:12 02/14/17 08:12 02/14/17 08:12 02/14/17 08:12 02/14/17 08:12 Intake and Output: 02/14/17 02/14/17 06:59 18:59 Intake Total 500 Output Total 10 Balance 490 - Medications Medications: Current Medications Acetaminophen (Tylenol 325mg Tab) 650 mg PO Q4 PRN PRN Reason: Fever >100.4 F Acetaminophen (Tylenol 325mg Tab) 650 mg PO Q4 PRN PRN Reason: Pain, moderate (4-7) Last Admin: 02/09/17 22:37 Dose: 650 mg Heparin Sodium (Porcine) (Heparin) 5,000 units SC Q12 [facility] PRN Reason: Protocol Last Admin: 02/14/17 08:52 Dose: 5,000 units Ibuprofen (Motrin Tab) 600 mg PO Q6 PRN PRN Reason: Pain, moderate (4-7) Last Admin: 02/11/17 15:19 Dose: 600 mg Ketorolac Tromethamine (Toradol) 15 mg IVP Q6 PRN PRN Reason: Pain, moderate (4-7) Ondansetron HCl (Zofran Odt) 4 mg PO Q8H PRN PRN Reason: Nausea/Vomiting Last Admin: 02/09/17 22:56 Dose: 4 mg - Labs Labs: 02/14/17 05:30 02/11/17 04:20 PT 12.2 Seconds (9.8-13.1) 02/05/17 11:23 INR 1.1 (0.9-1.2) 02/05/17 11:23 APTT 31.0 Seconds (25.6-37.1) 02/05/17 11:23 - Constitutional Appears: No Acute Distress - Head Exam Head Exam: ATRAUMATIC, NORMAL INSPECTION, NORMOCEPHALIC - Eye Exam Eye Exam: EOMI, Normal appearance, PERRL Pupil Exam: NORMAL ACCOMODATION, PERRL - ENT Exam ENT Exam: Mucous Membranes Moist, Normal Exam - Neck Exam Neck Exam: Full ROM, Normal Inspection. absent: Lymphadenopathy - Respiratory Exam Respiratory Exam: Clear to Ausculation Bilateral, NORMAL BREATHING PATTERN Additional comments: CHEST TUBE IN PLACE - Cardiovascular Exam Cardiovascular Exam: REGULAR RHYTHM, +S1, +S2. absent: Murmur - GI/Abdominal Exam GI & Abdominal Exam: Soft, Normal Bowel Sounds. absent: Tenderness - Rectal Exam Rectal Exam: NORMAL INSPECTION - Extremities Exam Extremities Exam: Full ROM, Normal Capillary Refill, Normal Inspection. absent : Joint Swelling, Pedal Edema - Back Exam Back Exam: NORMAL INSPECTION - Neurological Exam Neurological Exam: Alert, Awake, CN II-XII Intact, Normal Gait, Oriented x3 - Psychiatric Exam Psychiatric exam: Normal Affect, Normal Mood - Skin Skin Exam: Dry, Intact, Normal Color, Warm Assessment and Plan - Assessment and Plan (Free Text) Assessment: R PNEUMOTHORAX RESOLVED ON CXR Plan: CONTINUE RX PER SURGEON
--- NOTE | 2017-02-14 12:59 | CP.PCM.PN ---
Subjective - Date & Time of Evaluation Date of Evaluation: 02/14/17 Time of Evaluation: 12:57 - Subjective Subjective: Surgery for Dr. De Anda Pt s&eBerta SEBASTIAN. Denies F/C/N/V/D/CP/SOB. + amb. + void. + tolerate diet. No leak Objective - Vital Signs/Intake and Output Vital Signs (last 24 hours): Temp Pulse Resp BP Pulse Ox 97.7 F 71 20 132/74 96 02/14/17 08:12 02/14/17 08:12 02/14/17 08:12 02/14/17 08:12 02/14/17 08:12 Intake and Output: 02/14/17 02/14/17 06:59 18:59 Intake Total 500 Output Total 10 Balance 490 - Medications Medications: Current Medications Acetaminophen (Tylenol 325mg Tab) 650 mg PO Q4 PRN PRN Reason: Fever >100.4 F Acetaminophen (Tylenol 325mg Tab) 650 mg PO Q4 PRN PRN Reason: Pain, moderate (4-7) Last Admin: 02/09/17 22:37 Dose: 650 mg Heparin Sodium (Porcine) (Heparin) 5,000 units SC Q12 [facility] PRN Reason: Protocol Last Admin: 02/14/17 08:52 Dose: 5,000 units Ibuprofen (Motrin Tab) 600 mg PO Q6 PRN PRN Reason: Pain, moderate (4-7) Last Admin: 02/11/17 15:19 Dose: 600 mg Ketorolac Tromethamine (Toradol) 15 mg IVP Q6 PRN PRN Reason: Pain, moderate (4-7) Ondansetron HCl (Zofran Odt) 4 mg PO Q8H PRN PRN Reason: Nausea/Vomiting Last Admin: 02/09/17 22:56 Dose: 4 mg - Labs Labs: 02/14/17 05:30 02/11/17 04:20 PT 12.2 Seconds (9.8-13.1) 02/05/17 11:23 INR 1.1 (0.9-1.2) 02/05/17 11:23 APTT 31.0 Seconds (25.6-37.1) 02/05/17 11:23 - Constitutional Appears: No Acute Distress - Head Exam Head Exam: ATRAUMATIC, NORMAL INSPECTION, NORMOCEPHALIC - Eye Exam Eye Exam: EOMI, Normal appearance, PERRL Pupil Exam: NORMAL ACCOMODATION, PERRL - ENT Exam ENT Exam: Mucous Membranes Moist, Normal Exam - Neck Exam Neck Exam: Full ROM, Normal Inspection. absent: Lymphadenopathy - Respiratory Exam Respiratory Exam: Clear to Ausculation Bilateral, NORMAL BREATHING PATTERN Additional comments: R CT in place. No leak. minimal SS output. Dressing C/D/I. - Cardiovascular Exam Cardiovascular Exam: REGULAR RHYTHM, +S1, +S2. absent: Murmur - GI/Abdominal Exam GI & Abdominal Exam: Soft, Normal Bowel Sounds. absent: Distended, Firm, Guarding, Tenderness - Extremities Exam Extremities Exam: Full ROM, Normal Capillary Refill, Normal Inspection. absent : Joint Swelling, Pedal Edema - Back Exam Back Exam: NORMAL INSPECTION - Neurological Exam Neurological Exam: Alert, Awake, CN II-XII Intact, Normal Gait, Oriented x3 - Psychiatric Exam Psychiatric exam: Normal Affect, Normal Mood - Skin Skin Exam: Dry, Intact, Normal Color, Warm. absent: Erythema Assessment and Plan - Assessment and Plan (Free Text) Assessment: R chest tube for pneumothorax. CXR this AM: no Penumothorax. -Daily CXR -Daily CBC -CT on waterseal -Cont. current management DW Dr. De Anda
[2017-02-15 06:50] LABS: MEAN CELL VOLUME 87.2 fl (80.0-94.0); MEAN CORPUSCULAR HEMOGLOBIN 30.4 pg (27.0-31.0); MEAN CORPUSCULAR HGB CONC 34.9 g/dL (33.0-37.0); RED CELL DISTRIBUTION WIDTH 12.9 % (11.5-14.5); WHITE BLOOD COUNT 8.5 K/uL (4.8-10.8)
--- NOTE | 2017-02-15 09:38 | CP.PCM.PN ---
Subjective - Date & Time of Evaluation Date of Evaluation: 02/15/17 Time of Evaluation: 09:38 - Subjective Subjective: Surgery: Dr. De Anda Pt seen and examined. Resting comfortably in bed. Pain controlled. No difficulty breathing. Objective - Vital Signs/Intake and Output Vital Signs (last 24 hours): Temp Pulse Resp BP Pulse Ox 98.6 F 62 18 125/70 96 02/15/17 08:34 02/15/17 08:34 02/15/17 08:34 02/15/17 08:34 02/15/17 08:34 Intake and Output: 02/15/17 02/15/17 06:59 18:59 Output Total 5 Balance -5 - Medications Medications: Current Medications Acetaminophen (Tylenol 325mg Tab) 650 mg PO Q4 PRN PRN Reason: Fever >100.4 F Acetaminophen (Tylenol 325mg Tab) 650 mg PO Q4 PRN PRN Reason: Pain, moderate (4-7) Last Admin: 02/09/17 22:37 Dose: 650 mg Heparin Sodium (Porcine) (Heparin) 5,000 units SC Q12 [facility] PRN Reason: Protocol Last Admin: 02/15/17 08:25 Dose: 5,000 units Ibuprofen (Motrin Tab) 600 mg PO Q6 PRN PRN Reason: Pain, moderate (4-7) Last Admin: 02/11/17 15:19 Dose: 600 mg Ketorolac Tromethamine (Toradol) 15 mg IVP Q6 PRN PRN Reason: Pain, moderate (4-7) Ondansetron HCl (Zofran Odt) 4 mg PO Q8H PRN PRN Reason: Nausea/Vomiting Last Admin: 02/09/17 22:56 Dose: 4 mg - Labs Labs: 02/15/17 06:15 02/11/17 04:20 PT 12.2 Seconds (9.8-13.1) 02/05/17 11:23 INR 1.1 (0.9-1.2) 02/05/17 11:23 APTT 31.0 Seconds (25.6-37.1) 02/05/17 11:23 - Constitutional Appears: Non-toxic, No Acute Distress - Head Exam Head Exam: ATRAUMATIC, NORMOCEPHALIC - Eye Exam Eye Exam: EOMI - ENT Exam ENT Exam: Mucous Membranes Moist - Neck Exam Neck Exam: Full ROM - Respiratory Exam Respiratory Exam: NORMAL BREATHING PATTERN. absent: Accessory Muscle Use, Respiratory Distress Additional comments: R side CT in place - Neurological Exam Neurological Exam: Alert, Awake, Oriented x3 Assessment and Plan - Assessment and Plan (Free Text) Assessment: 26M w. recurrent R PTX, s/p CT placement and talc pleurodesis, POD#6 -CT: 5cc/24hr, tidling, + air leak -AM CXR, apical PTX -will place CT back to suction -c/w daily CXR -d/w attending Zemaitis PGY3
--- NOTE | 2017-02-15 12:52 | RAD ---
PROCEDURE: CHEST RADIOGRAPH, 1 VIEW HISTORY: chest tube COMPARISON: 02/14/2017 FINDINGS: LUNGS: Clear. PLEURA: Right apical chest tube unchanged. No pneumothorax. No pleural effusion. CARDIOVASCULAR: Normal. OSSEOUS STRUCTURES: No significant abnormalities. VISUALIZED UPPER ABDOMEN: Normal. OTHER FINDINGS: None. IMPRESSION: Right apical chest tube. No pneumothorax. Otherwise unremarkable.
--- NOTE | 2017-02-15 13:43 | CP.PCM.PN ---
Subjective - Date & Time of Evaluation Date of Evaluation: 02/15/17 Time of Evaluation: 13:38 - Subjective Subjective: Pt s/e. No c/o. cxr-tiny apical space-?pneumo. chest tube nor air leak and a negatiive pleural pressure. wound culture + for staph coag neg. a/p: continue current care. ID consult for wound culture. Objective - Vital Signs/Intake and Output Vital Signs (last 24 hours): Temp Pulse Resp BP Pulse Ox 98.6 F 62 18 125/70 96 02/15/17 08:34 02/15/17 08:34 02/15/17 08:34 02/15/17 08:34 02/15/17 08:34 Intake and Output: 02/15/17 02/15/17 06:59 18:59 Output Total 5 Balance -5 - Medications Medications: Current Medications Acetaminophen (Tylenol 325mg Tab) 650 mg PO Q4 PRN PRN Reason: Fever >100.4 F Acetaminophen (Tylenol 325mg Tab) 650 mg PO Q4 PRN PRN Reason: Pain, moderate (4-7) Last Admin: 02/09/17 22:37 Dose: 650 mg Heparin Sodium (Porcine) (Heparin) 5,000 units SC Q12 [facility] PRN Reason: Protocol Last Admin: 02/15/17 08:25 Dose: 5,000 units Ibuprofen (Motrin Tab) 600 mg PO Q6 PRN PRN Reason: Pain, moderate (4-7) Last Admin: 02/11/17 15:19 Dose: 600 mg Ketorolac Tromethamine (Toradol) 15 mg IVP Q6 PRN PRN Reason: Pain, moderate (4-7) Ondansetron HCl (Zofran Odt) 4 mg PO Q8H PRN PRN Reason: Nausea/Vomiting Last Admin: 02/09/17 22:56 Dose: 4 mg - Labs Labs: 02/15/17 06:15 02/11/17 04:20 PT 12.2 Seconds (9.8-13.1) 02/05/17 11:23 INR 1.1 (0.9-1.2) 02/05/17 11:23 APTT 31.0 Seconds (25.6-37.1) 02/05/17 11:23
--- NOTE | 2017-02-15 20:56 | CP.PCM.CON ---
History of Present Illness - History of Present Illness History of Present Illness: 26M w. recurrent R PTX, s/p CT placement and talc pleurodesis, POD#6 -CT: 5cc/24hr, tidling, + air leak + culture for staph epi from CT site which could be colonizer no fever chills leukocytosis site is dry min redness patient reluctant to take antibiotics for this will continue to observe for signs of infection Past Patient History - Past Medical History & Family History Past Medical History?: No - Past Social History Smoking Status: Never Smoked - CARDIAC Hx Cardiac Disorders: No - PULMONARY Hx Respiratory Disorders: No - NEUROLOGICAL Hx Neurological Disorder: No - HEENT Hx HEENT Problems: No - RENAL Hx Chronic Kidney Disease: No - ENDOCRINE/METABOLIC Hx Endocrine Disorders: No - HEMATOLOGICAL/ONCOLOGICAL Hx Blood Disorders: No Hx AIDS: No Hx Human Immunodeficiency Virus (HIV): No - INTEGUMENTARY Hx Dermatological Problems: No - MUSCULOSKELETAL/RHEUMATOLOGICAL Hx Musculoskeletal Disorders: No Hx Falls: No - GENITOURINARY/GYNECOLOGICAL Hx Genitourinary Disorders: No - PSYCHIATRIC Hx Psychophysiologic Disorder: No Hx Substance Use: No - SURGICAL HISTORY Hx Surgeries: No - ANESTHESIA Hx Anesthesia: Yes Hx Anesthesia Reactions: No Hx Malignant Hyperthermia: No Has any member of the family had a problem w/ anesthesia?: No Meds Allergies/Adverse Reactions: Allergies Allergy/AdvReac Type Severity Reaction Status Date / Time Penicillins Allergy RASH Verified 02/05/17 10:51 - Medications Medications: Current Medications Acetaminophen (Tylenol 325mg Tab) 650 mg PO Q4 PRN PRN Reason: Fever >100.4 F Acetaminophen (Tylenol 325mg Tab) 650 mg PO Q4 PRN PRN Reason: Pain, moderate (4-7) Last Admin: 02/09/17 22:37 Dose: 650 mg Heparin Sodium (Porcine) (Heparin) 5,000 units SC Q12 [facility] PRN Reason: Protocol Last Admin: 02/15/17 08:25 Dose: 5,000 units Ibuprofen (Motrin Tab) 600 mg PO Q6 PRN PRN Reason: Pain, moderate (4-7) Last Admin: 02/11/17 15:19 Dose: 600 mg Ketorolac Tromethamine (Toradol) 15 mg IVP Q6 PRN PRN Reason: Pain, moderate (4-7) Ondansetron HCl (Zofran Odt) 4 mg PO Q8H PRN PRN Reason: Nausea/Vomiting Last Admin: 02/09/17 22:56 Dose: 4 mg Results - Vital Signs Recent Vital Signs: Last Vital Signs Temp 98.7 F 02/15/17 15:58 Pulse 89 02/15/17 15:58 Resp 17 02/15/17 15:58 BP 126/72 02/15/17 15:58 Pulse Ox 93 L 02/15/17 15:58 - Labs Result Diagrams: 02/15/17 06:15 02/11/17 04:20 Labs: Laboratory Results - last 24 hr 02/15/17 06:15 WBC 8.5 RBC 5.27 Hgb 16.0 Hct 46.0 MCV 87.2 MCH 30.4 MCHC 34.9 RDW 12.9 Plt Count 252
[2017-02-16 07:50] LABS: HEMATOCRIT 48.6 % (35.0-51.0); MEAN CELL VOLUME 85.6 fl (80.0-94.0); MEAN CORPUSCULAR HEMOGLOBIN 30.6 pg (27.0-31.0); MEAN CORPUSCULAR HGB CONC 35.7 g/dL (33.0-37.0); RED CELL DISTRIBUTION WIDTH 12.6 % (11.5-14.5); WHITE BLOOD COUNT 9.1 K/uL (4.8-10.8)
--- NOTE | 2017-02-16 09:25 | CP.PCM.PN ---
Subjective - Date & Time of Evaluation Date of Evaluation: 02/16/17 Time of Evaluation: 09:24 - Subjective Subjective: Surgery: Dr. De Anda Pt seen and examined. No difficulty breathing overnight. No acute events. Objective - Vital Signs/Intake and Output Vital Signs (last 24 hours): Temp Pulse Resp BP Pulse Ox 98 F 52 L 18 124/77 98 02/16/17 08:58 02/16/17 08:58 02/16/17 08:58 02/16/17 08:58 02/16/17 08:58 Intake and Output: 02/16/17 02/16/17 06:59 18:59 Output Total 0 Balance 0 - Medications Medications: Current Medications Acetaminophen (Tylenol 325mg Tab) 650 mg PO Q4 PRN PRN Reason: Fever >100.4 F Acetaminophen (Tylenol 325mg Tab) 650 mg PO Q4 PRN PRN Reason: Pain, moderate (4-7) Last Admin: 02/09/17 22:37 Dose: 650 mg Heparin Sodium (Porcine) (Heparin) 5,000 units SC Q12 [facility] PRN Reason: Protocol Last Admin: 02/16/17 09:16 Dose: 5,000 units Ibuprofen (Motrin Tab) 600 mg PO Q6 PRN PRN Reason: Pain, moderate (4-7) Last Admin: 02/11/17 15:19 Dose: 600 mg Ketorolac Tromethamine (Toradol) 15 mg IVP Q6 PRN PRN Reason: Pain, moderate (4-7) Ondansetron HCl (Zofran Odt) 4 mg PO Q8H PRN PRN Reason: Nausea/Vomiting Last Admin: 02/09/17 22:56 Dose: 4 mg - Labs Labs: 02/16/17 07:05 02/11/17 04:20 PT 12.2 Seconds (9.8-13.1) 02/05/17 11:23 INR 1.1 (0.9-1.2) 02/05/17 11:23 APTT 31.0 Seconds (25.6-37.1) 02/05/17 11:23 - Constitutional Appears: Non-toxic, No Acute Distress - Head Exam Head Exam: ATRAUMATIC, NORMOCEPHALIC - Eye Exam Eye Exam: EOMI - ENT Exam ENT Exam: Mucous Membranes Moist - Neck Exam Neck Exam: Full ROM - Respiratory Exam Respiratory Exam: NORMAL BREATHING PATTERN. absent: Accessory Muscle Use, Respiratory Distress Additional comments: R side CT in place - Extremities Exam Extremities Exam: Full ROM. absent: Calf Tenderness - Neurological Exam Neurological Exam: Alert, Awake, Oriented x3 Assessment and Plan - Assessment and Plan (Free Text) Assessment: 26M w. recurrent R PTX, s/p CT placement and talc pleurodesis, POD#7 -CT: 5cc/24hr, tidling, + air leak -AM CXR stable, questionable small apical PTX -pt for CT scan today, f/u results -keep CT to suction -will d/w attending Magdaleno PGY3
[2017-02-16] MEDS ORDERED: Sodium Chloride 0.9% 0 ML IV ONE (11:08)
[2017-02-16] MEDS ORDERED: Iohexol 300 100 ML IJ ONE (11:08)
--- NOTE | 2017-02-16 11:41 | RAD ---
HISTORY: comparison COMPARISON: 02/15/2027 FINDINGS: LUNGS: No infiltrate. No active pulmonary disease. PLEURA: Right apical chest tube. Previously identified questionable very small right apical pneumothorax is not evident on the current examination. There is no evidence of pneumothorax. There is minimal subcutaneous emphysema seen over the lower right lateral chest wall. CARDIOVASCULAR: Normal. OSSEOUS STRUCTURES: No significant abnormalities. VISUALIZED UPPER ABDOMEN: Normal. OTHER FINDINGS: None. IMPRESSION: Right apical chest tube. No evidence of pneumothorax.
--- NOTE | 2017-02-16 14:23 | CP.PCM.PN ---
Subjective - Date & Time of Evaluation Date of Evaluation: 02/16/17 Time of Evaluation: 14:18 - Subjective Subjective: Pt s/e. chest tube continuous suction at 15 cm [id number] IPP and no air leak. cxr-No pneumo ct -tiny space?Pneumo. a/p: continue suction at 15cm. clamp the tube on , and if develops pneumo, then Heimlich valve and d.c home. Objective - Vital Signs/Intake and Output Vital Signs (last 24 hours): Temp Pulse Resp BP Pulse Ox 98 F 52 L 18 124/77 98 02/16/17 08:58 02/16/17 08:58 02/16/17 08:58 02/16/17 08:58 02/16/17 08:58 Intake and Output: 02/16/17 02/16/17 06:59 18:59 Output Total 0 Balance 0 - Medications Medications: Current Medications Acetaminophen (Tylenol 325mg Tab) 650 mg PO Q4 PRN PRN Reason: Fever >100.4 F Acetaminophen (Tylenol 325mg Tab) 650 mg PO Q4 PRN PRN Reason: Pain, moderate (4-7) Last Admin: 02/09/17 22:37 Dose: 650 mg Heparin Sodium (Porcine) (Heparin) 5,000 units SC Q12 [facility] PRN Reason: Protocol Last Admin: 02/16/17 09:16 Dose: 5,000 units Ibuprofen (Motrin Tab) 600 mg PO Q6 PRN PRN Reason: Pain, moderate (4-7) Last Admin: 02/11/17 15:19 Dose: 600 mg Ketorolac Tromethamine (Toradol) 15 mg IVP Q6 PRN PRN Reason: Pain, moderate (4-7) Ondansetron HCl (Zofran Odt) 4 mg PO Q8H PRN PRN Reason: Nausea/Vomiting Last Admin: 02/09/17 22:56 Dose: 4 mg - Labs Labs: 02/16/17 07:05 02/11/17 04:20 PT 12.2 Seconds (9.8-13.1) 02/05/17 11:23 INR 1.1 (0.9-1.2) 02/05/17 11:23 APTT 31.0 Seconds (25.6-37.1) 02/05/17 11:23
--- NOTE | 2017-02-16 14:35 | CT ---
PROCEDURE: CT Chest without contrast HISTORY: Persistent pneumothorax COMPARISON: 02/12/[address] TECHNIQUE: Contiguous axial images were obtained through the chest without intravenous contrast enhancement. Sagittal and coronal reconstructions were performed. Radiation dose (DLP): 574 mGy-cm. This CT exam was performed using one or more of the following dose reduction techniques: Automated exposure control, adjustment of the mA and/or kV according to patient size, and/or use of iterative reconstruction technique. FINDINGS: LUNGS: In the interval, trace pneumothorax again seen the right pulmonary apex not dramatically changed in the interval. Right-sided chest tube is unchanged in position in the right pleural space terminating in medial right apex. No left-sided pneumothorax. Limited right lower lobe dependent atelectasis identified and stricture pleural effusion with none on the left. MEDIASTINUM: Unremarkable thoracic aorta. No aneurysm. Normal sized heart. Main pulmonary artery unremarkable. No vascular congestion. No lymphadenopathy. PLEURA: As per above. BONES: No fracture. No destructive lesion. UPPER ABDOMEN: Grossly unremarkable. OTHER FINDINGS: None. IMPRESSION: Trace right pneumothorax is only identifiable by CT. It is not seen the chest rare performed today central 12/17/2016. Right-sided chest tube remains in good apparent position. The right basilar dependent atelectasis. Findings were reviewed and discussed with Dr. De Anda.
--- NOTE | 2017-02-16 15:49 | CP.PCM.PN ---
Subjective - Date & Time of Evaluation Date of Evaluation: 02/16/17 Time of Evaluation: 15:50 - Subjective Subjective: nNO CHEST PAINS/SOB NO COUGH STILL HAS CHEST TUBE IN PLACE Objective - Vital Signs/Intake and Output Vital Signs (last 24 hours): Temp Pulse Resp BP Pulse Ox 98 F 52 L 18 124/77 98 02/16/17 08:58 02/16/17 08:58 02/16/17 08:58 02/16/17 08:58 02/16/17 08:58 Intake and Output: 02/16/17 02/16/17 06:59 18:59 Output Total 0 Balance 0 - Medications Medications: Current Medications Acetaminophen (Tylenol 325mg Tab) 650 mg PO Q4 PRN PRN Reason: Fever >100.4 F Acetaminophen (Tylenol 325mg Tab) 650 mg PO Q4 PRN PRN Reason: Pain, moderate (4-7) Last Admin: 02/09/17 22:37 Dose: 650 mg Heparin Sodium (Porcine) (Heparin) 5,000 units SC Q12 YUSRA PRN Reason: Protocol Last Admin: 02/16/17 09:16 Dose: 5,000 units Ibuprofen (Motrin Tab) 600 mg PO Q6 PRN PRN Reason: Pain, moderate (4-7) Last Admin: 02/11/17 15:19 Dose: 600 mg Ketorolac Tromethamine (Toradol) 15 mg IVP Q6 PRN PRN Reason: Pain, moderate (4-7) Ondansetron HCl (Zofran Odt) 4 mg PO Q8H PRN PRN Reason: Nausea/Vomiting Last Admin: 02/09/17 22:56 Dose: 4 mg - Labs Labs: 02/16/17 07:05 02/11/17 04:20 PT 12.2 Seconds (9.8-13.1) 02/05/17 11:23 INR 1.1 (0.9-1.2) 02/05/17 11:23 APTT 31.0 Seconds (25.6-37.1) 02/05/17 11:23 - Constitutional Appears: Well - Head Exam Head Exam: ATRAUMATIC, NORMAL INSPECTION, NORMOCEPHALIC - Eye Exam Eye Exam: EOMI, Normal appearance, PERRL Pupil Exam: NORMAL ACCOMODATION, PERRL - ENT Exam ENT Exam: Mucous Membranes Moist, Normal Exam - Neck Exam Neck Exam: Full ROM, Normal Inspection. absent: Lymphadenopathy - Respiratory Exam Respiratory Exam: Clear to Ausculation Bilateral, NORMAL BREATHING PATTERN Additional comments: CHEST TUBE IN PLACE - Cardiovascular Exam Cardiovascular Exam: REGULAR RHYTHM, +S1, +S2. absent: Murmur - GI/Abdominal Exam GI & Abdominal Exam: Soft, Normal Bowel Sounds. absent: Tenderness - Rectal Exam Rectal Exam: NORMAL INSPECTION - Extremities Exam Extremities Exam: Full ROM, Normal Capillary Refill, Normal Inspection. absent : Joint Swelling, Pedal Edema - Back Exam Back Exam: NORMAL INSPECTION - Neurological Exam Neurological Exam: Alert, Awake, CN II-XII Intact, Normal Gait, Oriented x3 - Psychiatric Exam Psychiatric exam: Normal Affect, Normal Mood - Skin Skin Exam: Dry, Intact, Normal Color, Warm Assessment and Plan - Assessment and Plan (Free Text) Assessment: SPONTANEOUS PNEUMOTHORAX--APPEARS TO HAVE RESOLVED Plan: CXR-NO EVIDENCE OF PNEUMOTHORAX CT SCAN OF CHEST--BARELY VISIBLE PNEUMOTHORAX CONTINUE RX PER SURGEON
--- NOTE | 2017-02-17 08:21 | CP.PCM.PN ---
Subjective - Date & Time of Evaluation Date of Evaluation: 02/17/17 Time of Evaluation: 08:14 - Subjective Subjective: Surgery Progress note. Dr. De Anda Pt seen and examined at bedside. No acute events overnight. Denies CP/SOB. No N/ V/D. No new complaints. Objective - Vital Signs/Intake and Output Vital Signs (last 24 hours): Temp Pulse Resp BP Pulse Ox 97.6 F 74 18 108/65 97 02/17/17 00:52 02/17/17 00:52 02/17/17 00:52 02/17/17 00:52 02/17/17 00:52 Intake and Output: 02/17/17 02/17/17 06:59 18:59 Output Total 0 0 Balance 0 0 - Medications Medications: Current Medications Acetaminophen (Tylenol 325mg Tab) 650 mg PO Q4 PRN PRN Reason: Fever >100.4 F Acetaminophen (Tylenol 325mg Tab) 650 mg PO Q4 PRN PRN Reason: Pain, moderate (4-7) Last Admin: 02/09/17 22:37 Dose: 650 mg Heparin Sodium (Porcine) (Heparin) 5,000 units SC Q12 YUSRA PRN Reason: Protocol Last Admin: 02/16/17 23:29 Dose: 5,000 units Ibuprofen (Motrin Tab) 600 mg PO Q6 PRN PRN Reason: Pain, moderate (4-7) Last Admin: 02/11/17 15:19 Dose: 600 mg Ketorolac Tromethamine (Toradol) 15 mg IVP Q6 PRN PRN Reason: Pain, moderate (4-7) Ondansetron HCl (Zofran Odt) 4 mg PO Q8H PRN PRN Reason: Nausea/Vomiting Last Admin: 02/09/17 22:56 Dose: 4 mg - Labs Labs: 02/16/17 07:05 02/11/17 04:20 PT 12.2 Seconds (9.8-13.1) 02/05/17 11:23 INR 1.1 (0.9-1.2) 02/05/17 11:23 APTT 31.0 Seconds (25.6-37.1) 02/05/17 11:23 - Constitutional Appears: Well, No Acute Distress - Head Exam Head Exam: ATRAUMATIC, NORMAL INSPECTION, NORMOCEPHALIC - Eye Exam Eye Exam: EOMI - ENT Exam ENT Exam: Mucous Membranes Moist - Respiratory Exam Respiratory Exam: NORMAL BREATHING PATTERN Additional comments: CT to waterseal today. No air leaks. [place]. Dressing clean, dry and intact. - GI/Abdominal Exam GI & Abdominal Exam: Soft. absent: Guarding, Rigid, Tenderness - Extremities Exam Extremities Exam: Normal Inspection. absent: Calf Tenderness - Neurological Exam Neurological Exam: Alert, Awake, Oriented x3 - Psychiatric Exam Psychiatric exam: Normal Affect, Normal Mood - Skin Skin Exam: Dry, Intact, Normal Color, Warm Assessment and Plan - Assessment and Plan (Free Text) Assessment: 26M w. recurrent R PTX, s/p CT placement and talc pleurodesis, POD#8 - CT - small apical PTX, chest tube in good position - Chest Tube: no output, tidling, no air leak - f/u AM CXR - CT to waterseal today - Plan for CT clamp trial tomorrow and if fails, Heimlich valve and DC Further recs as per Dr. Neetu Shelby PGY1 surgery pager: [phone]
--- NOTE | 2017-02-17 10:17 | RAD ---
HISTORY: comparison COMPARISON: 02/16/17 FINDINGS: LUNGS: In situ right-sided chest tube the tip of which lies near the medial right apex. Tiny residual right apical pneumothorax. . Questionable minimal right basilar atelectasis. There does appear to be small amount of residual subcutaneous emphysema right lateral lower chest wall. Left lung clear. PLEURA: No significant pleural effusion identified, no pneumothorax apparent. CARDIOVASCULAR: Normal. OSSEOUS STRUCTURES: No significant abnormalities. VISUALIZED UPPER ABDOMEN: Normal. OTHER FINDINGS: None. IMPRESSION: In situ right-sided chest tube. Tiny residual right apical pneumothorax.
[2017-02-17 10:21] LABS: HEMATOCRIT 49.1 % (35.0-51.0); MEAN CELL VOLUME 86.6 fl (80.0-94.0); MEAN CORPUSCULAR HEMOGLOBIN 30.6 pg (27.0-31.0); MEAN CORPUSCULAR HGB CONC 35.3 g/dL (33.0-37.0); RED CELL DISTRIBUTION WIDTH 12.6 % (11.5-14.5); WHITE BLOOD COUNT 8.9 K/uL (4.8-10.8)
[2017-02-17 10:32] LABS: BLOOD UREA NITROGEN 16 mg/dl (9-20); CALCIUM 9.9 mg/dL (8.4-10.2); CARBON DIOXIDE 26 mmol/L (22-30); CHLORIDE 101 mmol/L (98-107); GFR AFRICAN-AMERICAN > 60; GLUCOSE,RANDOM 88 mg/dL (75-110); SODIUM 140 mmol/l (132-148)
--- NOTE | 2017-02-17 13:43 | CP.PCM.PN ---
Subjective - Date & Time of Evaluation Date of Evaluation: 02/17/17 Time of Evaluation: 13:38 - Subjective Subjective: Pt s/e. [id number] cxr-tiny apical pneumo or space. chest tube -No output-no air leak and negative ipp. Pleuravac changed and chest tube site reenforced with vaseline guze-No air leak and continue to show a negative pressure. a/p: continuous suction at 15 cm h2o for next several hours and then off suction. d/w Afsaneh.stat cxr Objective - Vital Signs/Intake and Output Vital Signs (last 24 hours): Temp Pulse Resp BP Pulse Ox 97.9 F 90 18 128/79 94 L 02/17/17 08:38 02/17/17 08:38 02/17/17 08:38 02/17/17 08:38 02/17/17 08:38 Intake and Output: 02/17/17 02/17/17 06:59 18:59 Output Total 0 0 Balance 0 0 - Medications Medications: Current Medications Acetaminophen (Tylenol 325mg Tab) 650 mg PO Q4 PRN PRN Reason: Fever >100.4 F Acetaminophen (Tylenol 325mg Tab) 650 mg PO Q4 PRN PRN Reason: Pain, moderate (4-7) Last Admin: 02/09/17 22:37 Dose: 650 mg Heparin Sodium (Porcine) (Heparin) 5,000 units SC Q12 YUSRA PRN Reason: Protocol Last Admin: 02/17/17 08:49 Dose: 5,000 units Ibuprofen (Motrin Tab) 600 mg PO Q6 PRN PRN Reason: Pain, moderate (4-7) Last Admin: 02/11/17 15:19 Dose: 600 mg Ketorolac Tromethamine (Toradol) 15 mg IVP Q6 PRN PRN Reason: Pain, moderate (4-7) Ondansetron HCl (Zofran Odt) 4 mg PO Q8H PRN PRN Reason: Nausea/Vomiting Last Admin: 02/09/17 22:56 Dose: 4 mg - Labs Labs: 02/17/17 09:30 02/17/17 09:30 PT 12.2 Seconds (9.8-13.1) 02/05/17 11:23 INR 1.1 (0.9-1.2) 02/05/17 11:23 APTT 31.0 Seconds (25.6-37.1) 02/05/17 11:23
--- NOTE | 2017-02-17 13:58 | RAD ---
HISTORY: chest tube COMPARISON: 02/17/2017 09:03 a.m. FINDINGS: LUNGS: No acute infiltrate identified bilaterally. . PLEURA: Trace right pneumothorax is minimally increased seen only on magnification of the right pulmonary apex digitally. Right-sided chest tube unchanged in position. No left pneumothorax apparent. CARDIOVASCULAR: Stable. OSSEOUS STRUCTURES: No significant abnormalities. VISUALIZED UPPER ABDOMEN: Normal. OTHER FINDINGS: None. IMPRESSION: Minimal right apical pneumothorax slightly increased but not significantly so. Right-sided chest tube unchanged in position. Findings were reviewed and discussed with Dr. De Anda. Yes
--- NOTE | 2017-02-17 19:07 | CP.PCM.PN ---
Subjective - Date & Time of Evaluation Date of Evaluation: 02/17/17 Time of Evaluation: 08:00 - Subjective Subjective: no fever chest tube sight dry no drainage Objective - Vital Signs/Intake and Output Vital Signs (last 24 hours): Temp Pulse Resp BP Pulse Ox 98.3 F 86 17 153/79 H 98 02/17/17 15:55 02/17/17 15:55 02/17/17 15:55 02/17/17 15:55 02/17/17 15:55 Intake and Output: 02/17/17 02/18/17 18:59 06:59 Output Total 40 Balance -40 - Medications Medications: Current Medications Acetaminophen (Tylenol 325mg Tab) 650 mg PO Q4 PRN PRN Reason: Fever >100.4 F Acetaminophen (Tylenol 325mg Tab) 650 mg PO Q4 PRN PRN Reason: Pain, moderate (4-7) Last Admin: 02/09/17 22:37 Dose: 650 mg Heparin Sodium (Porcine) (Heparin) 5,000 units SC Q12 YUSRA PRN Reason: Protocol Last Admin: 02/17/17 08:49 Dose: 5,000 units Ibuprofen (Motrin Tab) 600 mg PO Q6 PRN PRN Reason: Pain, moderate (4-7) Last Admin: 02/11/17 15:19 Dose: 600 mg Ketorolac Tromethamine (Toradol) 15 mg IVP Q6 PRN PRN Reason: Pain, moderate (4-7) Ondansetron HCl (Zofran Odt) 4 mg PO Q8H PRN PRN Reason: Nausea/Vomiting Last Admin: 02/09/17 22:56 Dose: 4 mg - Labs Labs: 02/17/17 09:30 02/17/17 09:30 PT 12.2 Seconds (9.8-13.1) 02/05/17 11:23 INR 1.1 (0.9-1.2) 02/05/17 11:23 APTT 31.0 Seconds (25.6-37.1) 02/05/17 11:23 - Constitutional Appears: Non-toxic - Head Exam Head Exam: NORMOCEPHALIC - Eye Exam Eye Exam: PERRL - ENT Exam ENT Exam: Mucous Membranes Dry - Neck Exam Neck Exam: absent: Lymphadenopathy - Respiratory Exam Respiratory Exam: Decreased Breath Sounds, Clear to Ausculation Bilateral Assessment and Plan - Assessment and Plan (Free Text) Plan: cont rx observe
[2017-02-18 09:01] LABS: MEAN CELL VOLUME 86.2 fl (80.0-94.0); MEAN CORPUSCULAR HEMOGLOBIN 30.6 pg (27.0-31.0); MEAN CORPUSCULAR HGB CONC 35.5 g/dL (33.0-37.0); RED CELL DISTRIBUTION WIDTH 12.7 % (11.5-14.5); WHITE BLOOD COUNT 8.2 K/uL (4.8-10.8)
--- NOTE | 2017-02-18 10:33 | RAD ---
HISTORY: comparison COMPARISON: 02/17/2017 FINDINGS: LUNGS: No pulmonary infiltrate PLEURA: Very small right apical pneumothorax. Right apical chest tube unchanged in position. No pleural effusion appreciated. CARDIOVASCULAR: Normal. OSSEOUS STRUCTURES: No significant abnormalities. VISUALIZED UPPER ABDOMEN: Normal. OTHER FINDINGS: None. IMPRESSION: Very small right apical pneumothorax. Right chest tube. Otherwise unchanged.
--- NOTE | 2017-02-18 11:14 | CP.PCM.PN ---
Subjective - Date & Time of Evaluation Date of Evaluation: 02/18/17 Time of Evaluation: 11:10 - Subjective Subjective: Pt s/e. No c/o. Chest tube clamped, and will d/c tube provided cxr satisfactory and ipp remains negative/ Rx plan discussed with residents(drs. baker, stefani, and fay Objective - Vital Signs/Intake and Output Vital Signs (last 24 hours): Temp Pulse Resp BP Pulse Ox 97.5 F L 69 20 119/69 97 02/18/17 07:34 02/18/17 07:34 02/18/17 07:34 02/18/17 07:34 02/18/17 07:34 - Medications Medications: Current Medications Acetaminophen (Tylenol 325mg Tab) 650 mg PO Q4 PRN PRN Reason: Fever >100.4 F Acetaminophen (Tylenol 325mg Tab) 650 mg PO Q4 PRN PRN Reason: Pain, moderate (4-7) Last Admin: 02/09/17 22:37 Dose: 650 mg Heparin Sodium (Porcine) (Heparin) 5,000 units SC Q12 YUSRA PRN Reason: Protocol Last Admin: 02/18/17 09:03 Dose: 5,000 units Ibuprofen (Motrin Tab) 600 mg PO Q6 PRN PRN Reason: Pain, moderate (4-7) Last Admin: 02/11/17 15:19 Dose: 600 mg Ketorolac Tromethamine (Toradol) 15 mg IVP Q6 PRN PRN Reason: Pain, moderate (4-7) Ondansetron HCl (Zofran Odt) 4 mg PO Q8H PRN PRN Reason: Nausea/Vomiting Last Admin: 02/09/17 22:56 Dose: 4 mg - Labs Labs: 02/18/17 08:30 02/17/17 09:30 PT 12.2 Seconds (9.8-13.1) 02/05/17 11:23 INR 1.1 (0.9-1.2) 02/05/17 11:23 APTT 31.0 Seconds (25.6-37.1) 02/05/17 11:23
--- NOTE | 2017-02-19 07:58 | CP.PCM.PN ---
Subjective - Date & Time of Evaluation Date of Evaluation: 02/19/17 Time of Evaluation: 07:00 - Subjective Subjective: THORACIC SURGERY PROGRESS NOTE FOR DR. MCKENZIE Patient seen and examined at bedside. Patient reports feeling well, no CP or SOB. Chest tube was clamped yesterday. He is asking when he can go home. Objective - Vital Signs/Intake and Output Vital Signs (last 24 hours): Temp Pulse Resp BP Pulse Ox 97.8 F 70 20 110/63 97 02/19/17 07:35 02/19/17 07:35 02/19/17 07:35 02/19/17 07:35 02/19/17 07:35 - Medications Medications: Current Medications Acetaminophen (Tylenol 325mg Tab) 650 mg PO Q4 PRN PRN Reason: Fever >100.4 F Acetaminophen (Tylenol 325mg Tab) 650 mg PO Q4 PRN PRN Reason: Pain, moderate (4-7) Last Admin: 02/09/17 22:37 Dose: 650 mg Heparin Sodium (Porcine) (Heparin) 5,000 units SC Q12 YUSRA PRN Reason: Protocol Last Admin: 02/18/17 21:11 Dose: 5,000 units Ibuprofen (Motrin Tab) 600 mg PO Q6 PRN PRN Reason: Pain, moderate (4-7) Last Admin: 02/11/17 15:19 Dose: 600 mg Ondansetron HCl (Zofran Odt) 4 mg PO Q8H PRN PRN Reason: Nausea/Vomiting Last Admin: 02/09/17 22:56 Dose: 4 mg - Labs Labs: 02/18/17 08:30 02/17/17 09:30 PT 12.2 Seconds (9.8-13.1) 02/05/17 11:23 INR 1.1 (0.9-1.2) 02/05/17 11:23 APTT 31.0 Seconds (25.6-37.1) 02/05/17 11:23 - Constitutional Appears: Non-toxic, No Acute Distress - Head Exam Head Exam: ATRAUMATIC, NORMAL INSPECTION - Eye Exam Eye Exam: EOMI, Normal appearance - Respiratory Exam Respiratory Exam: NORMAL BREATHING PATTERN. absent: Respiratory Distress Additional comments: Right chest tube in place, clamped Dressing clean, dry, intact - Cardiovascular Exam Cardiovascular Exam: +S1, +S2 - Neurological Exam Neurological Exam: Alert, Awake, Oriented x3 - Psychiatric Exam Psychiatric exam: Normal Affect, Normal Mood - Skin Skin Exam: Dry, Normal Color, Warm Assessment and Plan - Assessment and Plan (Free Text) Assessment: 26yo M with Right pneumothorax s/p chest tube placement and talc pleurodesis POD #10 - Chest tube clamped yesterday - AM CXR still pending - If satisfactory CXR this AM, will remove chest tube today - If not, possible Heimlich valve placement - Possible DC home tomorrow - Discussed plan with Dr. Neetu Ramirez PGY-3
--- NOTE | 2017-02-19 10:24 | RAD ---
HISTORY: interval changes, CT clamp trial COMPARISON: 02/18/2017 FINDINGS: LUNGS: No pulmonary infiltrate. PLEURA: Very small right apical pneumothorax persists. Minimal blunting of right costophrenic angle may reflect very small pleural effusion. Most extreme left costophrenic angle is cut off on this film. No evidence of left pleural effusion. No left pneumothorax. Right apical chest tube remains unchanged in position. CARDIOVASCULAR: Normal. OSSEOUS STRUCTURES: No significant abnormalities. VISUALIZED UPPER ABDOMEN: Normal. OTHER FINDINGS: None. IMPRESSION: Persistent very small right apical pneumothorax. Right chest tube extends to right apex, unchanged. Possible trace right pleural effusion.
--- NOTE | 2017-02-19 11:07 | CP.PCM.PN ---
Subjective - Date & Time of Evaluation Date of Evaluation: 02/19/17 Time of Evaluation: 11:07 - Subjective Subjective: NO SOB VITALS STABLE LUNGS-CLEAR HEART-S1S2 CXR-R CHEST TUBE IN PLACE WITH VERY SMALL R APICAL PNEUMOTHORAX WILL DERF THERAPY TO SURGICAL TEAM Objective - Vital Signs/Intake and Output Vital Signs (last 24 hours): Temp Pulse Resp BP Pulse Ox 97.8 F 70 20 110/63 97 02/19/17 07:35 02/19/17 07:35 02/19/17 07:35 02/19/17 07:35 02/19/17 07:35 - Medications Medications: Current Medications Acetaminophen (Tylenol 325mg Tab) 650 mg PO Q4 PRN PRN Reason: Fever >100.4 F Acetaminophen (Tylenol 325mg Tab) 650 mg PO Q4 PRN PRN Reason: Pain, moderate (4-7) Last Admin: 02/09/17 22:37 Dose: 650 mg Heparin Sodium (Porcine) (Heparin) 5,000 units SC Q12 YUSRA PRN Reason: Protocol Last Admin: 02/19/17 09:08 Dose: 5,000 units Ibuprofen (Motrin Tab) 600 mg PO Q6 PRN PRN Reason: Pain, moderate (4-7) Last Admin: 02/11/17 15:19 Dose: 600 mg Ondansetron HCl (Zofran Odt) 4 mg PO Q8H PRN PRN Reason: Nausea/Vomiting Last Admin: 02/09/17 22:56 Dose: 4 mg - Labs Labs: 02/18/17 08:30 02/17/17 09:30 PT 12.2 Seconds (9.8-13.1) 02/05/17 11:23 INR 1.1 (0.9-1.2) 02/05/17 11:23 APTT 31.0 Seconds (25.6-37.1) 02/05/17 11:23
--- NOTE | 2017-02-19 12:53 | RAD ---
PROCEDURE: CHEST RADIOGRAPH, 1 VIEW HISTORY: post chest tube pull COMPARISON: 02/19/2017 at 9:16 a.m. FINDINGS: LUNGS: The right apical chest tube has been removed. Chest tube tract is evident faintly. There is a larger pneumothorax than on the earlier examination. The apical pneumothorax has increased mildly in size. There is new pneumothorax seen at the right base with air surrounding the right middle lobe and what is likely lower lobe. No lung markings are seen at the lateral right lung base. There is no left pneumothorax. There is no pulmonary infiltrate. PLEURA: There is no pleural effusion. CARDIOVASCULAR: Normal. OSSEOUS STRUCTURES: No significant abnormalities. VISUALIZED UPPER ABDOMEN: Normal. OTHER FINDINGS: None. IMPRESSION: Increased right pneumothorax status post removal of right chest tube. This case was discussed with the surgical garment assembly supervisor at 12:45 p.m. on 02/19/2017.
[2017-02-19] MEDS ORDERED: Sodium Chloride 0.9% 50 ML IV ONE (13:47)
[2017-02-19] MEDS ORDERED: Lidocaine 1% Inj (20ml) ONE ×2 (13:47→13:51)
--- NOTE | 2017-02-19 14:09 | CP.PCM.PN ---
Subjective - Date & Time of Evaluation Date of Evaluation: 02/19/17 Time of Evaluation: 04:00 - Subjective Subjective: s/p chest tube placement and talc pleurodesis POD #10 no fever Objective - Vital Signs/Intake and Output Vital Signs (last 24 hours): Temp Pulse Resp BP Pulse Ox 97.8 F 70 20 110/63 97 02/19/17 07:35 02/19/17 07:35 02/19/17 07:35 02/19/17 07:35 02/19/17 07:35 - Medications Medications: Current Medications Acetaminophen (Tylenol 325mg Tab) 650 mg PO Q4 PRN PRN Reason: Fever >100.4 F Acetaminophen (Tylenol 325mg Tab) 650 mg PO Q4 PRN PRN Reason: Pain, moderate (4-7) Last Admin: 02/09/17 22:37 Dose: 650 mg Heparin Sodium (Porcine) (Heparin) 5,000 units SC Q12 YUSRA PRN Reason: Protocol Last Admin: 02/19/17 09:08 Dose: 5,000 units Ibuprofen (Motrin Tab) 600 mg PO Q6 PRN PRN Reason: Pain, moderate (4-7) Last Admin: 02/11/17 15:19 Dose: 600 mg Ondansetron HCl (Zofran Odt) 4 mg PO Q8H PRN PRN Reason: Nausea/Vomiting Last Admin: 02/09/17 22:56 Dose: 4 mg - Labs Labs: 02/18/17 08:30 02/17/17 09:30 PT 12.2 Seconds (9.8-13.1) 02/05/17 11:23 INR 1.1 (0.9-1.2) 02/05/17 11:23 APTT 31.0 Seconds (25.6-37.1) 02/05/17 11:23 - Constitutional Appears: Non-toxic, Chronically Ill - Head Exam Head Exam: NORMOCEPHALIC - Eye Exam Eye Exam: PERRL. absent: Scleral icterus - ENT Exam ENT Exam: Mucous Membranes Dry, Normal External Ear Exam - Neck Exam Neck Exam: absent: Lymphadenopathy - Respiratory Exam Respiratory Exam: Decreased Breath Sounds, Clear to Ausculation Bilateral - Cardiovascular Exam Cardiovascular Exam: REGULAR RHYTHM - GI/Abdominal Exam GI & Abdominal Exam: Distended, Soft - Rectal Exam Rectal Exam: Deferred - Exam Exam: NORMAL INSPECTION - Extremities Exam Extremities Exam: absent: Calf Tenderness, Pedal Edema - Back Exam Back Exam: absent: CVA tenderness (L), CVA tenderness (R), paraspinal tenderness - Neurological Exam Neurological Exam: Alert, Awake, Oriented x3 - Psychiatric Exam Psychiatric exam: Normal Mood - Skin Skin Exam: Dry Assessment and Plan - Assessment and Plan (Free Text) Assessment: chest tube clamped s/p pleurodesis no sign of infection
--- NOTE | 2017-02-19 15:14 | PCM.SURG1 ---
Surgeon's Initial Post Op Note - Surgeon's Notes Surgeon: Romain Leavitt MD Backhaul Driver: None Type of Anesthesia: Local Pre-Operative Diagnosis: Right PTX Operative Findings: CT showed 30% right PTX Post-Operative Diagnosis: Right PTX Operation Performed: CT guided 10 fr right pigtail chest tube placement. Specimen/Specimens Removed: NONE Estimated Blood Loss: EBL {In ML}: 0 Blood Products Given: N/A Drains Used: No Drains Post-Op Condition: Fair Date of Surgery/Procedure: 02/19/17 Time of Surgery/Procedure: 15:00
--- NOTE | 2017-02-19 15:26 | CT ---
PROCEDURE: Date of procedure: 02/19/2017 Procedure: 1. Placement of a right chest tube with CT guidance Medications: 8cc 1 percent lidocaine HISTORY: Large right pneumothorax TECHNIQUE: Following informed consent and procedure time-out, the patient's right chest was marked, prepped and draped in the usual sterile fashion. Non contrast CT showed a large right pneumothorax. After the skin was anesthetized with 1% lidocaine and the , a [place] catheter was advanced under CT guidance into the pleural space. The catheter was exchanged over an 035 guidewire and tract was dilated to accommodate a 10 [place] pigtail catheter formed within the pleural space. The catheter was secured to patient's skin. A xeroform dressing was applied. The catheter was then attached to a pleurovac and wall suction. Post CT scan showed re-expansion of the right lung. IMPRESSION: Placement of 10 [place] right chest tube. There were no immediate complications.
[2017-02-19] MEDS ORDERED: Bacitracin 500 Units/gm Oint Foilpak UD TOP ONE (16:00)
--- NOTE | 2017-02-19 16:50 | CP.PCM.PN ---
Subjective - Date & Time of Evaluation Date of Evaluation: 02/19/17 Time of Evaluation: 16:45 - Subjective Subjective: Surgery Progress note. Dr. De Anda Patient seen and examined this morning. No significant increase in size of pneumothorax. Chest tube was pulled. Repeat post pull CXR showed increased size of pneumothorax. IR consulted and a 10F Pigtail catheter was placed by Dr. Leavitt. Significantly resolved pneumothorax was confirmed on CT scan while in IR suite. Pleurovac connected to pigtail catheter and to wall suction. Pleurovac placed to suction on 15, No apparent air leak noted. Dressings reenforced with vasaline gauze. Plan: - Repeat CT chest tomorrow AM - will place on heimlich valve - Plan for discharge tomorrow. Patient to go to [facility] for further management/second opinion from Dr. Key. Further recs as per Dr. Neetu Shelby PGY1 Objective - Vital Signs/Intake and Output Vital Signs (last 24 hours): Temp Pulse Resp BP Pulse Ox 97.8 F 90 20 119/74 97 02/19/17 07:35 02/19/17 15:05 02/19/17 15:05 02/19/17 15:05 02/19/17 15:05 - Medications Medications: Current Medications Acetaminophen (Tylenol 325mg Tab) 650 mg PO Q4 PRN PRN Reason: Fever >100.4 F Acetaminophen (Tylenol 325mg Tab) 650 mg PO Q4 PRN PRN Reason: Pain, moderate (4-7) Last Admin: 02/09/17 22:37 Dose: 650 mg Heparin Sodium (Porcine) (Heparin) 5,000 units SC Q12 YUSRA PRN Reason: Protocol Last Admin: 02/19/17 09:08 Dose: 5,000 units Ibuprofen (Motrin Tab) 600 mg PO Q6 PRN PRN Reason: Pain, moderate (4-7) Last Admin: 02/19/17 15:26 Dose: 600 mg Ondansetron HCl (Zofran Odt) 4 mg PO Q8H PRN PRN Reason: Nausea/Vomiting Last Admin: 02/09/17 22:56 Dose: 4 mg - Labs Labs: 02/18/17 08:30 02/17/17 09:30 PT 12.2 Seconds (9.8-13.1) 02/05/17 11:23 INR 1.1 (0.9-1.2) 02/05/17 11:23 APTT 31.0 Seconds (25.6-37.1) 02/05/17 11:23
--- NOTE | 2017-02-19 17:04 | CP.PCM.PN ---
Subjective - Date & Time of Evaluation Date of Evaluation: 02/19/17 Time of Evaluation: 16:39 - Subjective Subjective: This am the pt was assymtomatic, no chest pain or sob with no air leak, negitlive intrapleural pressure both on or off suciton +apical pneumo? space isssue after clamping chest tube with 2 clamps next to the insertion site. Chest tube removed, and cxr showed pneumothorax in the area of area of lower lobe and apex. Pig tail cath inserted by IR and ct (post procedure) shows small residual pneumo and right basilar atelectasis and effusion. I believe we have tried sufficient nonop approaches and inclined to recommend VATS for the pts recurrent pneumothorax. Since I will be away for next two weeks, I have contacted Dr. Key [facility], who will meet the pt in the ER tomorrow morning and consider doing VATS on Wednesday, He wants to obtain 2nd opinion, and I will help him to get 2nd opiinion tmorrow. Will d/c him tomorrow on Heimlich valve to care of Dr Lemon. Objective - Vital Signs/Intake and Output Vital Signs (last 24 hours): Temp Pulse Resp BP Pulse Ox 97.8 F 90 20 119/74 97 02/19/17 07:35 02/19/17 15:05 02/19/17 15:05 02/19/17 15:05 02/19/17 15:05 - Medications Medications: Current Medications Acetaminophen (Tylenol 325mg Tab) 650 mg PO Q4 PRN PRN Reason: Fever >100.4 F Acetaminophen (Tylenol 325mg Tab) 650 mg PO Q4 PRN PRN Reason: Pain, moderate (4-7) Last Admin: 02/09/17 22:37 Dose: 650 mg Heparin Sodium (Porcine) (Heparin) 5,000 units SC Q12 YUSRA PRN Reason: Protocol Last Admin: 02/19/17 09:08 Dose: 5,000 units Ibuprofen (Motrin Tab) 600 mg PO Q6 PRN PRN Reason: Pain, moderate (4-7) Last Admin: 02/19/17 15:26 Dose: 600 mg Ondansetron HCl (Zofran Odt) 4 mg PO Q8H PRN PRN Reason: Nausea/Vomiting Last Admin: 02/09/17 22:56 Dose: 4 mg - Labs Labs: 02/18/17 08:30 02/17/17 09:30 PT 12.2 Seconds (9.8-13.1) 02/05/17 11:23 INR 1.1 (0.9-1.2) 02/05/17 11:23 APTT 31.0 Seconds (25.6-37.1) 02/05/17 11:23
--- NOTE | 2017-02-20 10:27 | RAD ---
PROCEDURE: CHEST RADIOGRAPH, 1 VIEW HISTORY: pneumothorax COMPARISON: 02/19/2017 FINDINGS: LUNGS: Clear. PLEURA: Right chest tube in place. No evidence of pneumothorax. CARDIOVASCULAR: Normal. OSSEOUS STRUCTURES: No significant abnormalities. VISUALIZED UPPER ABDOMEN: Normal. OTHER FINDINGS: None. IMPRESSION: Right chest tube in place. No evidence of pneumothorax.
--- NOTE | 2017-02-20 11:25 | CP.PCM.PN ---
Subjective - Date & Time of Evaluation Date of Evaluation: 02/20/17 Time of Evaluation: 11:20 - Subjective Subjective: Pt s/e. Intraleural pressure negative.and no air leak. ct this am : very small residual pnemo Pt agrees to be transfered to [facility] for continued care by Dr Islas. Objective - Vital Signs/Intake and Output Vital Signs (last 24 hours): Temp Pulse Resp BP Pulse Ox 97.6 F 79 20 128/83 99 02/20/17 08:11 02/20/17 08:11 02/20/17 08:11 02/20/17 08:11 02/20/17 08:11 Intake and Output: 02/20/17 02/20/17 06:59 18:59 Output Total 111 Balance -111 - Medications Medications: Current Medications Acetaminophen (Tylenol 325mg Tab) 650 mg PO Q4 PRN PRN Reason: Fever >100.4 F Acetaminophen (Tylenol 325mg Tab) 650 mg PO Q4 PRN PRN Reason: Pain, moderate (4-7) Last Admin: 02/09/17 22:37 Dose: 650 mg Heparin Sodium (Porcine) (Heparin) 5,000 units SC Q12 YUSRA PRN Reason: Protocol Last Admin: 02/20/17 09:56 Dose: 5,000 units Ibuprofen (Motrin Tab) 600 mg PO Q6 PRN PRN Reason: Pain, moderate (4-7) Last Admin: 02/19/17 22:18 Dose: 600 mg Ondansetron HCl (Zofran Odt) 4 mg PO Q8H PRN PRN Reason: Nausea/Vomiting Last Admin: 02/09/17 22:56 Dose: 4 mg - Labs Labs: 02/18/17 08:30 02/17/17 09:30 PT 12.2 Seconds (9.8-13.1) 02/05/17 11:23 INR 1.1 (0.9-1.2) 02/05/17 11:23 APTT 31.0 Seconds (25.6-37.1) 02/05/17 11:23
--- NOTE | 2017-02-20 12:10 | CT ---
PROCEDURE: CT Chest without contrast HISTORY: interval changes. SOB COMPARISON: None. TECHNIQUE: Contiguous axial images were obtained through the chest without intravenous contrast enhancement. Sagittal and coronal reconstructions were performed. Radiation dose (DLP): 629 mGy-cm. This CT exam was performed using one or more of the following dose reduction techniques: Automated exposure control, adjustment of the mA and/or kV according to patient size, and/or use of iterative reconstruction technique. FINDINGS: LUNGS: Minimal subsegmental atelectasis at the right base. Visualized airway clear. MEDIASTINUM: Unremarkable thoracic aorta. No aneurysm. Normal sized heart. Main pulmonary artery unremarkable. No vascular congestion. No lymphadenopathy. PLEURA: Minimal subsegmental infiltrate along the lateral chest wall with mild to moderate right pleural effusion. Right anterior chest tube in place with minimal residual pneumothorax. BONES: No fracture. No destructive lesion. UPPER ABDOMEN: Grossly unremarkable. OTHER FINDINGS: None. IMPRESSION: Minimal subsegmental infiltrate along the lateral chest wall with mild to moderate right pleural effusion. Right anterior chest tube in place with minimal residual pneumothorax. Minimal subsegmental atelectasis at the right base.
--- NOTE | 2017-02-21 12:46 | CP.PCM.PN ---
Subjective - Date & Time of Evaluation Date of Evaluation: 02/21/17 Time of Evaluation: 10:00 - Subjective Subjective: Intraleural pressure negative.and no air leak. ct this am : very small residual pnemo Objective - Vital Signs/Intake and Output Vital Signs (last 24 hours): Temp Pulse Resp BP Pulse Ox 97.4 F L 79 20 128/86 98 02/21/17 09:32 02/21/17 09:32 02/21/17 09:32 02/21/17 09:32 02/21/17 09:32 Intake and Output: 02/21/17 02/21/17 06:59 18:59 Output Total 0 Balance 0 - Medications Medications: Current Medications Acetaminophen (Tylenol 325mg Tab) 650 mg PO Q4 PRN PRN Reason: Fever >100.4 F Acetaminophen (Tylenol 325mg Tab) 650 mg PO Q4 PRN PRN Reason: Pain, moderate (4-7) Last Admin: 02/09/17 22:37 Dose: 650 mg Heparin Sodium (Porcine) (Heparin) 5,000 units SC Q12 YUSRA PRN Reason: Protocol Last Admin: 02/21/17 08:39 Dose: 5,000 units Ibuprofen (Motrin Tab) 600 mg PO Q6 PRN PRN Reason: Pain, moderate (4-7) Last Admin: 02/21/17 05:21 Dose: 600 mg Ondansetron HCl (Zofran Odt) 4 mg PO Q8H PRN PRN Reason: Nausea/Vomiting Last Admin: 02/09/17 22:56 Dose: 4 mg - Labs Labs: 02/18/17 08:30 02/17/17 09:30 PT 12.2 Seconds (9.8-13.1) 02/05/17 11:23 INR 1.1 (0.9-1.2) 02/05/17 11:23 APTT 31.0 Seconds (25.6-37.1) 02/05/17 11:23 - Constitutional Appears: Non-toxic, Chronically Ill - Head Exam Head Exam: NORMOCEPHALIC - Eye Exam Eye Exam: PERRL. absent: Scleral icterus - ENT Exam ENT Exam: Mucous Membranes Dry - Neck Exam Neck Exam: absent: Lymphadenopathy - Respiratory Exam Respiratory Exam: Decreased Breath Sounds - Cardiovascular Exam Cardiovascular Exam: REGULAR RHYTHM - GI/Abdominal Exam GI & Abdominal Exam: Distended, Soft - Rectal Exam Rectal Exam: Deferred - Exam Exam: NORMAL INSPECTION - Extremities Exam Extremities Exam: absent: Pedal Edema - Back Exam Back Exam: absent: CVA tenderness (L), CVA tenderness (R) - Neurological Exam Neurological Exam: Alert, Awake, CN II-XII Intact - Psychiatric Exam Psychiatric exam: Normal Mood - Skin Skin Exam: Dry Assessment and Plan (1) Chest tube in place Status: Acute (2) Hydropneumothorax Status: Acute
--- NOTE | 2017-02-21 12:59 | CP.PCM.PN ---
Subjective - Date & Time of Evaluation Date of Evaluation: 02/21/17 Time of Evaluation: 07:00 - Subjective Subjective: THORACIC SURGERY PROGRESS NOTE FOR DR. LOPEZ (covering for Dr. De Anda) Patient seen and examined at bedside. Patient reports feeling well, no CP or SOB. Awaiting insurance authorization for transfer to [facility]. IR pigtail on suction. No air leak. Intrapleural pressure negative. Objective - Vital Signs/Intake and Output Vital Signs (last 24 hours): Temp Pulse Resp BP Pulse Ox 97.4 F L 79 20 128/86 98 02/21/17 09:32 02/21/17 09:32 02/21/17 09:32 02/21/17 09:32 02/21/17 09:32 Intake and Output: 02/21/17 02/21/17 06:59 18:59 Output Total 0 Balance 0 - Medications Medications: Current Medications Acetaminophen (Tylenol 325mg Tab) 650 mg PO Q4 PRN PRN Reason: Fever >100.4 F Acetaminophen (Tylenol 325mg Tab) 650 mg PO Q4 PRN PRN Reason: Pain, moderate (4-7) Last Admin: 02/09/17 22:37 Dose: 650 mg Heparin Sodium (Porcine) (Heparin) 5,000 units SC Q12 YUSRA PRN Reason: Protocol Last Admin: 02/21/17 08:39 Dose: 5,000 units Ibuprofen (Motrin Tab) 600 mg PO Q6 PRN PRN Reason: Pain, moderate (4-7) Last Admin: 02/21/17 05:21 Dose: 600 mg Ondansetron HCl (Zofran Odt) 4 mg PO Q8H PRN PRN Reason: Nausea/Vomiting Last Admin: 02/09/17 22:56 Dose: 4 mg - Labs Labs: 02/18/17 08:30 02/17/17 09:30 PT 12.2 Seconds (9.8-13.1) 02/05/17 11:23 INR 1.1 (0.9-1.2) 02/05/17 11:23 APTT 31.0 Seconds (25.6-37.1) 02/05/17 11:23 - Constitutional Appears: Non-toxic, No Acute Distress - Respiratory Exam Respiratory Exam: NORMAL BREATHING PATTERN. absent: Respiratory Distress Additional comments: Right IR pigtail in place, no air leak, no new drainage Dressing clean/dry/intact - Cardiovascular Exam Cardiovascular Exam: +S1, +S2 - Neurological Exam Neurological Exam: Alert, Awake, Oriented x3 - Psychiatric Exam Psychiatric exam: Normal Affect, Normal Mood - Skin Skin Exam: Dry, Normal Color, Warm Assessment and Plan - Assessment and Plan (Free Text) Assessment: 26yo M with Right pneumothorax s/p chest tube placement and talc pleurodesis POD #12 - AM CXR still pending - No air leak - Awaiting authorization from insurance at [facility] for continued care under Dr. Islas - Possible transfer tomorrow - Discussed plan with Dr. Osvaldo Ramirez PGY-3
[2017-02-22 08:19] VITALS: BP 126/70; PULSE 74; RESP 20; TEMP 97.7; O2SAT 98
--- NOTE | 2017-02-22 12:40 | CP.PCM.PN ---
Subjective - Date & Time of Evaluation Date of Evaluation: 02/22/17 Time of Evaluation: 07:00 - Subjective Subjective: Surgery Progress note. Dr. Riley (covering for Dr. De Anda) Pt seen and examined at bedside. No acute events overnight. Denies any CP/SOB. No N/V/D. No Abd pain. Denies any new complaints. Objective - Vital Signs/Intake and Output Vital Signs (last 24 hours): Temp Pulse Resp BP Pulse Ox 97.7 F 74 20 126/70 98 02/22/17 08:18 02/22/17 08:18 02/22/17 08:18 02/22/17 08:18 02/22/17 08:18 - Medications Medications: Current Medications Acetaminophen (Tylenol 325mg Tab) 650 mg PO Q4 PRN PRN Reason: Fever >100.4 F Acetaminophen (Tylenol 325mg Tab) 650 mg PO Q4 PRN PRN Reason: Pain, moderate (4-7) Last Admin: 02/09/17 22:37 Dose: 650 mg Ondansetron HCl (Zofran Odt) 4 mg PO Q8H PRN PRN Reason: Nausea/Vomiting Last Admin: 02/09/17 22:56 Dose: 4 mg - Labs Labs: 02/18/17 08:30 02/17/17 09:30 PT 12.2 Seconds (9.8-13.1) 02/05/17 11:23 INR 1.1 (0.9-1.2) 02/05/17 11:23 APTT 31.0 Seconds (25.6-37.1) 02/05/17 11:23 - Constitutional Appears: Well, No Acute Distress - Head Exam Head Exam: ATRAUMATIC, NORMAL INSPECTION, NORMOCEPHALIC - Eye Exam Eye Exam: EOMI - ENT Exam ENT Exam: Mucous Membranes Moist - Respiratory Exam Respiratory Exam: NORMAL BREATHING PATTERN Additional comments: Chest Tube in place, to suction. No air leak - GI/Abdominal Exam GI & Abdominal Exam: Soft. absent: Guarding, Rigid, Tenderness - Extremities Exam Extremities Exam: Normal Inspection. absent: Calf Tenderness - Neurological Exam Neurological Exam: Alert, Awake, Oriented x3 - Psychiatric Exam Psychiatric exam: Normal Affect, Normal Mood - Skin Skin Exam: Dry, Intact, Normal Color, Warm Assessment and Plan - Assessment and Plan (Free Text) Assessment: 26yo M w spontaneous pneumothorax. S/p Chest tube/Pleurodesis POD 13. R 10F pig- tail chest tube placed on 02/19 - Continue chest tube to suction - Awaiting transfer to [facility] - Dr. Islas at [facility] to take over care following transfer Further recs as per Dr. Osvaldo Shelby PGY1
--- NOTE | 2017-02-22 14:32 | RAD ---
PROCEDURE: CHEST RADIOGRAPH, 1 VIEW. Upright study 10:45. HISTORY: Pneumothorax COMPARISON: 02/20/2017. FINDINGS: LUNGS: Clear. PLEURA: Pigtail catheter remains good position in the right pleural space. No pneumothorax. CARDIOVASCULAR: Normal. OSSEOUS STRUCTURES: No significant abnormalities. VISUALIZED UPPER ABDOMEN: Normal. OTHER FINDINGS: None. IMPRESSION: No pulmonary active disease.No significant interval change compared to the prior examination(s). Specifically, the pigtail catheter remains in good position in the right pleural space with no demonstrable pneumothorax.
--- NOTE | 2017-02-22 15:42 | CP.PCM.DIS ---
Provider - Provider Date of Admission: 02/05/17 12:52 Attending physician: Gray De Anda MD Consults: Infectious Disease: Dr. Mendez Neurology: Dr. Currie Pulmonology: Dr. David Interventional Radiology: Dr. Leavitt Time Spent in preparation of Discharge (in minutes): 45 Hospital Course - Lab Results Lab Results: Micro Results 02/12/17 19:02 Naris MRSA Culture (Admit) - Final MRSA NOT DETECTED 02/09/17 19:12 Chest Gram Stain - Final 02/09/17 19:12 Chest Wound Culture - Final Coagulase Neg Staphylococcus 02/09/17 05:00 Nose MRSA Culture (Admit) - Final MRSA NOT DETECTED Most Recent Lab Values WBC 8.2 K/uL (4.8-10.8) 02/18/17 08:30 RBC 5.92 Mil/uL (4.40-5.90) H 02/18/17 08:30 Hgb 18.1 g/dL (12.0-18.0) H 02/18/17 08:30 Hct 51.0 % (35.0-51.0) 02/18/17 08:30 MCV 86.2 fl (80.0-94.0) 02/18/17 08:30 MCH 30.6 pg (27.0-31.0) 02/18/17 08:30 MCHC 35.5 g/dL (33.0-37.0) 02/18/17 08:30 RDW 12.7 % (11.5-14.5) 02/18/17 08:30 Plt Count 270 K/uL (130-400) 02/18/17 08:30 MPV 9.1 fl (7.2-11.7) 02/05/17 11:23 Neut % (Auto) 55.4 % (50.0-75.0) 02/05/17 11:23 Lymph % (Auto) 34.7 % (20.0-40.0) 02/05/17 11:23 Addison % (Auto) 8.2 % (0.0-10.0) 02/05/17 11:23 Eos % (Auto) 0.8 % (0.0-4.0) 02/05/17 11:23 Baso % (Auto) 0.9 % (0.0-2.0) 02/05/17 11:23 Neut # 3.6 K/uL (1.8-7.0) 02/05/17 11:23 Lymph # 2.2 K/uL (1.0-4.3) 02/05/17 11:23 Addison # 0.5 K/uL (0.0-0.8) 02/05/17 11:23 Eos # 0.0 K/uL (0.0-0.7) 02/05/17 11:23 Baso # 0.1 K/uL (0.0-0.2) 02/05/17 11:23 PT 12.2 Seconds (9.8-13.1) 02/05/17 11: INR 1.1 (0.9-1.2) 02/05/17 11:23 APTT 31.0 Seconds (25.6-37.1) 02/05/17 11:23 pCO2 49 mm/Hg (35-45) H 02/09/17 14:45 pO2 69 mm/Hg (80-100) L 02/09/17 14:45 HCO3 27.5 mmol/L (21-28) 02/09/17 14:45 ABG pH 7.39 (7.35-7.45) 02/09/17 14:45 ABG Total CO2 31.2 mmol/L (22-28) H 02/09/17 14:45 ABG O2 Saturation 96.5 % (95-98) 02/09/17 14:45 ABG O2 Content 22.4 ML/dL (15-23) 02/09/17 14:45 ABG Base Excess 3.5 mmol/L (-2.0-3.0) H 02/09/17 14:45 ABG Hemoglobin 17.2 g/dL (11.7-17.4) 02/09/17 14:45 ABG Carboxyhemoglobin 2.1 % (0.5-1.5) H 02/09/17 14:45 POC ABG HHb (Measured) 3.4 % (0.0-5.0) 02/09/17 14:45 ABG Methemoglobin 1.8 % (0.0-3.0) 02/09/17 14:45 ABG O2 Capacity 23.2 mL/dL (16-24) 02/09/17 14:45 Ronny Test Yes 02/09/17 14:45 A-a O2 Difference 19.0 mm/Hg 02/09/17 14:45 Hgb O2 Saturation 92.7 % (95.0-98.0) L 02/09/17 14:45 FiO2 21.0 % 02/09/17 14:45 Sodium 140 mmol/l (132-148) 02/17/17 09:30 Potassium 4.0 MMOL/L (3.6-5.0) 02/17/17 09:30 Chloride 101 mmol/L (98-107) 02/17/17 09:30 Carbon Dioxide 26 mmol/L (22-30) 02/17/17 09:30 Anion Gap 16 (10-20) 02/17/17 09:30 BUN 16 mg/dl (9-20) 02/17/17 09:30 Creatinine 0.9 mg/dL (0.8-1.5) 02/17/17 09:30 Est GFR ( Amer) > 60 02/17/17 09:30 Est GFR (Non-Af Amer) > 60 02/17/17 09:30 Random Glucose 88 mg/dL (75-110) 02/17/17 09:30 Calcium 9.9 mg/dL (8.4-10.2) 02/17/17 09:30 Total Bilirubin 0.9 mg/dl (0.2-1.3) 02/11/17 04:20 AST 20 U/L (17-59) 02/11/17 04:20 ALT 36 U/L (21-72) 02/11/17 04:20 Alkaline Phosphatase 55 U/L (38-126) 02/11/17 04:20 Troponin I < 0.0120 ng/mL (0.00-0.120) 02/05/17 11:23 Total Protein 6.9 G/DL (6.3-8.2) 02/11/17 04:20 Albumin 4.0 g/dL (3.5-5.0) 02/11/17 04:20 Globulin 2.9 gm/dL (2.2-3.9) 02/11/17 04:20 Albumin/Globulin Ratio 1.4 (1.0-2.1) 02/11/17 04:20 [id number] 153 mg/dL (83-199) 02/10/17 10:10 Angiotensin Convert Enz 9 U/L (9-67) 02/10/17 10:10 - Hospital Course Hospital Course: 26yo M with no significant PMHx here for evaluation of spontaneous pneumothorax. Patient was seen in [place] ED for worsening SOB and was found to have a spontaneous Pneumothorax. Bedside Chest tube was placed, and pneumo resolved over the next couple of days. Upon removal of Chest tube on 02/09, pneumothorax recurred and the patient was taken to the OR for re-insertion of Chest Tube and Talc Pleurodesis on 02/09. Patient post-op course was complicated due to recurrent pneumothorax upon chest tube removal on 02/19. Interventional radiology was consulted and a CT-guided 10F pigtail catheter was placed and the pneumothorax was resolved. Currently, the patient has the pigtail catheter and it is connected to continuos suction. Patient was transferred to [facility] [place] under the care of Dr. Key for possible VATS. Patient was discharged via [facility] to [facility]. Patient understands and agrees with plan. Discharge Exam - Head Exam Head Exam: ATRAUMATIC, NORMAL INSPECTION, NORMOCEPHALIC - Eye Exam Eye Exam: EOMI - ENT Exam ENT Exam: Mucous Membranes Moist - Respiratory Exam Respiratory Exam: NORMAL BREATHING PATTERN Additional comments: Pigtail catheter in place, to suction. - GI/Abdominal Exam GI & Abdominal Exam: Soft. absent: Distended, Firm, Guarding, Mass, Rigid - Extremities Exam Extremities exam: normal inspection - Neurological Exam Neurological exam: Alert, Oriented x3 - Psychiatric Exam Psychiatric exam: Normal Affect, Normal Mood - Skin Skin Exam: Dry, Intact, Normal Color, Warm Discharge Plan - Follow Up Plan Condition: FAIR Disposition: Trans to Other Acute Care Hosp Instructions: Spontaneous Pneumothorax (DC), Chest Tubes (DC), Pleurodesis (DC) Additional Instructions: Patient to be transferred to [facility] [place] under Dr. Islas
--- NOTE | 2017-03-25 03:36 | OP ---
PROCEDURE DATE: 02/09/2017 PREOPERATIVE DIAGNOSIS: Recurrent right pneumothorax. POSTOPERATIVE DIAGNOSIS: Recurrent right pneumothorax. OPERATION PERFORMED: 1. Tube thoracostomy. 2. Talc pleurodesis. 3. Removal of the previously placed chest tube. SURGEON: Gray De Anda MD EM PHYSICIAN: Dr. Shelby. TYPE OF ANESTHESIA: Local 0.5% Xylocaine plus IV sedation. DESCRIPTION OF PROCEDURE: The patient was taken to the operating room where under satisfactory IV sedation, the operative field was prepared and draped in a sterile fashion. Previously placed chest tube was removed and culture of the wound was taken. After carefully debriding previous insertion site, 28-Syriac chest tube was inserted and was directed to the apex under fluoroscopic guidance. Next, talc slurry pleurodesis was carried out by instilling one-fifth of the solution prepared with 1 canister of talc in normal saline solution by gravity. Chest tube was next clamped which was to be unclamped in the recovery room. Sterile dressings were applied and taped in the usual manner. The patient tolerated the procedure very well and was transferred to the recovery room, awake with good vital signs. Estimated blood loss was 10 mL. Sponge, needle and instrument counts were correct. Gray De Anda MD
--- NOTE | 2017-03-25 09:11 | OP ---
PROCEDURE DATE: 02/05/2017 PREOPERATIVE DIAGNOSIS: Spontaneous pneumothorax, right. POSTOPERATIVE DIAGNOSIS: Spontaneous pneumothorax, right. OPERATION PERFORMED: Tube thoracostomy. SURGEON: Gray De Anda MD LABORER PRESTRESSED CONCRETE: Dr. Jarett Ross TYPE OF ANESTHESIA: Local plus propofol IV. OPERATIVE PROCEDURE: The patient was placed in supine position and operation field was draped in a sterile fashion and prepared with chlorhexidine skin prep. After IV sedation with propofol, op field was infiltrated with 0.5 local Xylocaine , skin incision was made in the fifth intercostal space and mid axillary line; using blunt dissection skin incision was deepened, and into the pleural cavity using index finger. After assessing the local anatomy, a 28 Latvian chest tube was inserted which was directed to the apex. Chest tube was secured to the skin edge at the insertion site with 0 silk sutures. Sterile dressings were applied and taped in usual manner. Position of the chest tube was confirmed at the end of the operative procedure, and the tip was found to be at the apex of the right hemithorax. The patient tolerated the procedure very well and was transferred to the ICU in satisfactory condition. Sterile dressing was applied and taped in usual manner. Needle and sponge counts : correct. EBL:Min. Gray De Anda MD MTDManuela
== END 2017-02-22 16:16 | disposition short-term general hospital (02) | DRG 199 ==
LOC: H.ER 10:35 → H.ERHOLD 12:52 → H.TEL 16:06 → H.ICU/CCU 02-09 16:08 → H.MEDSURG1 02-12 15:34
PROVIDERS: ADMIT Thoracic Surgery (Cardiothoracic Vascular Surgery); ATTEND Thoracic Surgery (Cardiothoracic Vascular Surgery)
PROC: 0W9930Z Drainage of Right Pleural Cavity with Drainage Device, Percutaneous Approach (ICD-10-PCS; principal; 2017-02-05)
PROC: 0W9930Z Drainage of Right Pleural Cavity with Drainage Device, Percutaneous Approach (ICD-10-PCS; 2017-02-09)
PROC: 3E0L3GC Introduction of Other Therapeutic Substance into Pleural Cavity, Percutaneous Approach (ICD-10-PCS; 2017-02-09)
PROC: 0W9930Z Drainage of Right Pleural Cavity with Drainage Device, Percutaneous Approach (ICD-10-PCS; 2017-02-19)
DX: J93.83 Other pneumothorax (principal); G92 Toxic encephalopathy; J98.11 Atelectasis; Z88.0 Allergy status to penicillin; J95.812 Postprocedural air leak; Y83.8 Other surgical procedures as the cause of abnormal reaction of the patient, or of later complication, without mention of misadventure at the time of the procedure; T41.1X5A Adverse effect of intravenous anesthetics, initial encounter